=== PATIENT | male | born 1965 | race Caucasian/White ===

== ENCOUNTER 2018-08-11 18:00 | Emergency (ER) | payer OTHER ==
[~2018-08-11] VITALS: Ht 165.1 cm; Wt 70.0 kg
[2018-08-11 18:07] VITALS: Ht 165.1 cm; Wt 70.0 kg
--- NOTE | 2018-08-11 18:09 | ERD ---
ER Documentation Chief Complaint Chief Complaint Patient transferred from [facility] for chest pain and shortness of breath pending admission. Patient is capitated but needs to be boarded in the emergency room. HPI 53-year-old male seen at [facility] today for chest pain and shortness of breath with a history of CHF. He was medically stabilized and was accepted by the hospitalist team at our facility given capitation. Patient currently has no chest pain. EMS reported an elevated blood pressure but the patient is asymptomatic. Patient will be boarding in the emergency room as there are no beds available. Patient has no complaints currently. ROS All systems reviewed and are negative except as per history of present illness. FmHx Family History: diabetes, coronary disease Physical Exam Vitals Vital Signs Date Temp Pulse Resp B/P (MAP) Pulse Ox O2 O2 Flow FiO2 Time Delivery Rate 08/11/18 98.2 82 18 210/107 100 18:07 (141) Physical Exam General: Well developed, well nourished, no acute distress Head: Normocephalic, atraumatic. Eyes: EOM intact ENT: Moist mucous membranes Neck: Full ROM Respiratory: No respiratory distress Cardiovascular: Well perfused distally Abdominal: Nondistended : Deferred MSK: No edema, no unilateral swelling, 5/5 strength Neurologic: Alert and oriented, moving all extremities, normal speech Skin: No rash Psych: Normal mood Results 24 hrs Current Medications Medications Dose Sig/Alex Start Time Status Last (Trade) Ordered Route PRN Stop Time Admin Dose Reason Admin Ondansetron 4 mg ER BRIDGE 08/11/18 HCl (Zofran PRN IV 18:30 Inj) NAUSEA/VOMITI 08/12/18 18:29 NG 650 mg ER BRIDGE 08/11/18 Acetaminophen PRN PO 18:30 (Tylenol .MILD PAIN 08/12/18 18:29 Tab) 1-3 OR TEMP Procedures/MDM The patient has no symptoms currently. Admitting team was notified. The patient was placed in a room and bridge orders have been placed. Awaiting ad mitting orders from the hospitalist team. Accepting care team and consultations: I discussed the current laboratory data, diagnostic imaging and emergency care provided. Admitting team: Dr. Youssef Admitting team indication: Insurance directed Admitting team notified re: elevated BP Departure Diagnosis: Primary Impression: Chest pain Chest pain type: unspecified Qualified Codes: R07.9 - Chest pain, unspe cified Additional Impression: Shortness of breath Condition: Stable DANIEL SEWELL MD August 11, 2018 18:09
[2018-08-11] MEDS ORDERED: NACL 0.9% 3 ML SYG IV SCH (18:30)
[2018-08-11] MEDS ORDERED: ACETAMINOPHEN 325 MG TAB PO PRN ×2 (18:30)
[2018-08-11] MEDS ORDERED: MAGNESIUM HYDROXIDE 30ML CUP PO PRN (18:30)
[2018-08-11] MEDS ORDERED: FAMOTIDINE 20 MG INJ IV SCH (18:30)
[2018-08-11] MEDS ORDERED: ONDANSETRON 4 MG INJ IV PRN ×2 (18:30)
[2018-08-11] MEDS ORDERED: HYDROCODONE/APAP (5/325) TAB PO PRN (18:30)
[2018-08-11] MEDS ORDERED: DOCUSATE SODIUM 100 MG CAP PO PRN (18:30)
[2018-08-11] MEDS ORDERED: LORAZEPAM 2 MG INJ IV PRN (18:30)
[2018-08-11] MEDS ORDERED: morphine 2 MG INJ IV PRN (18:30)
[2018-08-11] MEDS ORDERED: ALBUTEROL/IPRATROPIUM (NEB) 3 ML AMP HHN PRN (18:30)
[2018-08-11] MEDS ORDERED: hydrALAzine 20 MG INJ IV PRN ×3 (18:30→22:30)
[2018-08-11] MEDS ORDERED: NITROGLYCERIN (SL) 0.4 MG TAB SL PRN (18:30)
--- NOTE | 2018-08-11 18:51 | HP ---
Date/Time of Note Date/Time of Note DATE: 08/11/18 TIME: 18:49 Assessment/Plan VTE Prophylaxis SCD applied (from Nsg): No SCD contraindicated: other Pharmacological prophylaxis: LMWH Assessment/Plan Hospital Course Assessment and plan: 53-year-old male history of diabetes, hypertension, possible CHF who presented to outside hospital earlier today with decreased exercise tolerance, signs of CHF exacerbation, hypertensive urgency, and elevated troponins, possible non-ST elevation OH. #Non-ST elevation OH: Again at the outside hospital his first 2 troponins were elevated, but no EKG changes. Patient denies any prior history of any stroke or heart attack -Admit patient, put on Lovenox 1 mg/kg subcu twice daily. Check TSH A1c lip id panel -High-dose aspirin, morphine, oxygen, nitroglycerin, check 2D echocardiogram and continue to trend his troponins -Add beta-tyler and statin #Shortness of breath: Likely secondary to combination of non-STEMI possibly an CHF exacerbation, BNP 2700 -Keep head of the bed elevated greater than 30 degrees, put him on IV Lasix -Monitor daily weights and ins and outs, follow-up echocardiogram results and obtain cardiology consult as mentioned above -Consider low-dose Coreg # DM -follow-up A1c, sliding scale insulin # HTN: See above, monitor, continue current medications HPI/ROS Admit Date/Time Admit Date/Time Hx of Present Illness 53-year-old male past medical history of diabetes, hypertension, possible CHF, who presented earlier today at [facility] emergency room for chest pain and shortness of breath. Patient states his symptoms have been going on for the last 2 to 3 weeks. He is also had decreased exercise tolerance during this time. He is noted some slightly increased swelling in his lower 70s. No upper or lower GI bleeding, no fevers or chills, nausea vomiting, or diarrhea constipation. When he presented to the hospital he was found with hypertensive urgency systolic blood pressures in the 211 range, he was also found with elevated BNP of 2700, and his first 2 troponins they were positive although he had no EKG changes. He was given blood pressure medicines to help control his blood pressure better, IV Lasix, and found with creatinine 1.2. Transferred over here due to insurance purposes. PMH/Family/Social Past Medical History Medications Current Medications Ondansetron HCl (Zofran Inj) 4 mg ER BRIDGE PRN IV NAUSEA/VOMITING; Start 08/11/18 at 18:30; Stop 08/12/18 at 18:29 Acetaminophen (Tylenol Tab) 650 mg ER BRIDGE PRN PO .MILD PAIN 1-3 OR TEMP; Start 08/11/18 at 18:30; Stop 08/12/18 at 18:29 IV Flush (NS 3 ml) 3 ml PER PROTOCOL IV ; Start 08/11/18 at 18:30; Status UNV Ondansetron HCl (Zofran Inj) 4 mg Q6H PRN IV NAUSEA/VOMITING; Start 08/11/18 at 18:30; Status UNV Acetaminophen (Tylenol Tab) 650 mg Q6H PRN PO .PAIN 1-3 OR TEMP; Start 08/11/18 at 18:30; Status UNV Acetaminophen/ Hydrocodone Bitart ([place] (5/325)) 1 tab Q6H PRN PO .MOD PAIN 4- 6; Start 08/11/18 at 18:30; Status UNV Morphine Sulfate (morphine) 2 mg Q4H PRN IV .SEVERE PAIN 7-10; Start 08/11/18 at 18:30; Status UNV Docusate Sodium (Colace) 100 mg Q12H PRN PO .CONSTIPATION; Start 08/11/18 at 18:30; Status UNV Magnesium Hydroxide (Milk Of Mag) 30 ml DAILY PRN PO .CONSTIPATION; Start 08/11/18 at 18:30; Status UNV Famotidine (Pepcid Iv) 20 mg DAILY IV ; Start 08/11/18 at 18:30; Status UNV Lorazepam (Ativan) 0.5 mg Q6H PRN IV ANXIETY; Start 08/11/18 at 18:30; Status UNV Albuterol/ Ipratropium (Duoneb) 3 ml Q4H RESP THERAPY PRN HHN SHORTNESS OF BREATH; Start 08/11/18 at 18:30; Status UNV Clonidine (Catapres) 0.1 mg Q6H PRN PO ELEVATED BLOOD PRESSURE; Start 08/11/18 at 18:30; Status UNV Nitroglycerin (Nitroglycerin (Sl Tab) 0.4 Mg) 1 tab Q5M PRN SL ANGINA; Start 08/11/18 at 18:30; Status UNV Aspirin (Ecotrin) 325 mg DAILY PO ; Start 08/12/18 at 09:00; Status UNV Enoxaparin Sodium (Lovenox) 70 mg Q12 SC ; Start 08/11/18 at 21:00; Status UNV Furosemide (Lasix) 40 mg DAILY IV ; Start 08/12/18 at 09:00; Status UNV Hydralazine HCl (Apresoline) 10 mg Q4H PRN IV ELEVATED BLOOD PRESSURE; Start 08/11/18 at 22:30; Status UNV Past Surgical History Past Surgical Hx: other (Left foot surgery) Social History Alcohol Use: occasionally Smoking Status: Never smoker Drug Use: none Exam/Review of Systems Vital Signs Vitals Vital Signs Date Temp Pulse Resp B/P (MAP) Pulse Ox O2 O2 Flow FiO2 Time Delivery Rate 08/11/18 98.2 73 14 202/103 100 Room Air 18:37 (136) Exam Exam General: Lying in bed, no acute distress Head: Normocephalic, atraumatic. Eyes: EOM intact ENT: Moist mucous membranes Neck: Supple Respiratory: No respiratory distress Cardiovascular: S1, S2 heard Abdominal: Soft, nondistended, normal bowel sounds, no rebound or guarding MSK: 2+ pitting edema bilateral extremity to the mid calves Neurologic: No focal deficits ANDREAS CALHOUN August 11, 2018 18:51
[2018-08-11] MEDS ORDERED: GLUCAGON 1 MG INJ IM PRN (19:30)
[2018-08-11] MEDS ORDERED: DEXTROSE 50% 50 ML SYRINGE IV PRN ×2 (19:30)
[2018-08-11] MEDS ORDERED: GLUCOSE GEL 15 GRAM TUBE BUCCAL PRN (19:30)
[2018-08-11] MEDS ORDERED: ATORVASTATIN 80 MG TAB PO SCH (19:30)
[2018-08-11] MEDS ORDERED: GLUCOSE GEL 15 GRAM TUBE PO PRN ×2 (19:30)
[2018-08-11] MEDS ORDERED: METOPROLOL 25 MG TAB PO SCH (21:00)
[2018-08-11] MEDS ORDERED: INSULIN ASPART [NOVOLOG] 3 ML PEN SC SCH (21:00)
[2018-08-11] MEDS ORDERED: ENOXAPARIN 80 MG/0.8 ML SYG SC SCH (21:00)
[2018-08-11] MEDS: LISINOPRIL 20 MG TAB PO SCH (22:05)
--- NOTE | 2018-08-12 01:30 | CONS ---
DATE OF ADMISSION: 08/11/2018 DATE OF CONSULTATION: 08/11/2018 REASON FOR CONSULTATION: Positive troponin, congestive heart failure. REQUESTING PHYSICIAN: Dr. Calhoun from the hospitalist service. HISTORY OF PRESENT ILLNESS: Mr. Rincon is a 53-year-old male with a history of diabetes mellitus, hypertension, dyslipidemia who presented to an outside hospital with complaints of worsening lower extremity edema times approximately 2 weeks to co, but states 2 months to the outside hospital, dyspnea on exertion and exertional chest pain. At the outside hospital, the patient underwent an EKG that is not on the chart for my review but is reported to have had sinus rhythm, rate of 91, with no significant ST-T wave abnormalities. The patient has significantly elevated blood pressure on arrival 218/118 and at time of transfer was 151/92, pulse 89 on arrival and 74 at the time of transfer. The patient's labs were notable for troponin T which is high at 76 nanograms per liter and then thereafter was 71 and additionally a reportedly elevated creatinine, although I do not see the result of that in the chart for my review. The patient was stabilized and transferred to [facility] after receiving a dose of Lasix, magnesium sulfate, labetalol 100 mg and nitro paste 1 inch. Since arrival at [facility] the patient continued to have a significantly elevated blood pressures over 200. The patient has no labs done here at this time. The patient additionally has no EKG available for my review at this time. The patient denies chest pain to co, is plus/minus on symptoms of orthopnea. PAST MEDICAL HISTORY: As above in the HPI. MEDICATIONS CURRENTLY IN HOSPITAL: 1. Aspirin 325 mg daily. 2. Lasix 40 mg IV daily. 3. Hydralazine p.r.n. 4. Lovenox 30 mg subQ q.12. 5. Zofran. 6. Tylenol. 7. Morphine. 8. Colace. 9. Milk of Magnesia. 10. Ativan. 11. DuoNeb. 12. Clonidine. 13. Nitroglycerin. ALLERGIES: NO KNOWN DRUG ALLERGIES. SOCIAL HISTORY: No current tobacco, ETOH or illicit drug use. FAMILY HISTORY: No history of sudden cardiac or early CAD. REVIEW OF SYSTEMS: As above in the HPI. CONSTITUTIONAL: No fevers or chills. PULMONARY: Shortness of breath. CARDIOVASCULAR: Exertional chest pain. GASTROINTESTINAL: No vomiting. GENITOURINARY: Reported renal failure PHYSICAL EXAMINATION: VITAL SIGNS: Temperature of 98.2, blood pressure 202/103, pulse 70, respiratory rate 14, satting 100% on room air. GENERAL: The patient is alert, awake, complaining of shortness of breath. NECK: JVP approximately 10 cm of water. CHEST: Decreased breath sounds at bases bilaterally. HEART: Regular rate and rhythm. Normal S1 and S2. A I/ systolic murmur, nondisplaced PMI. ABDOMEN: Positive bowel sounds, soft. EXTREMITIES: 2+ edema bilaterally. Somewhat difficult to palpate distal pulses bilateral posterior tibial. LABORATORY DATA: No labs for my review at this time. IMAGING STUDIES: No imaging studies for my review at this time. ELECTROCARDIOGRAM: No electrocardiograms for my review at this time. IMPRESSION: 1. Positive troponin at an outside hospital, assess significance in the setting of mild renal insufficiency and a highly sensitive assay. 2. Lower extremity edema and shortness of breath, assess congestive heart failure. 3. Exertional chest pain, rule out acute coronary syndrome. 4. Mild renal insufficiency by outside hospital labs. 5. Increased BNP, assess congestive heart failure. 6. Diabetes mellitus. 7. Hypertensive urgency/emergency. 8. Dyslipidemia. RECOMMENDATIONS: 1. At this time, I would start patient on p.o. antihypertensives and therefore we will give the patient a beta tyler and consider THIEN inhibitor versus hydralazine given the renal insufficiency. I am also going to additionally write for IV push p.r.n. antihypertensive as necessary. 2. We will trend the patient's cardiac enzymes here. 3. Will check a 2D echo for this patient's ejection fraction, wall motion and rule out any major abnormalities. 4. Check a fasting lipid panel and adjust the patient's baseline statin as necessary. 5. Initiate the patient on Lasix diuresis, following strict I's and O's, grade diuresis and creatinine closely. 6. The patient has been placed on Lovenox and aspirin. We will continue to follow along for true acute coronary syndrome. 7. We will continue to check serial EKGs to assess for significant ongoing changes. Thus, an EKG in the morning, EKG for any complaint of chest pain or change in rhythm. Thank you for allowing me to take part in the care of this patient. I will continue to follow along very closely with you. Further recommendations will be made as the patient progresses through inpatient hospital clinical course. Dictated By: SHAWN DEJESUS/ZEUS Conf#: [id number] DID#: [id number] CC: ANDREAS CALHOUN;*EndCC* MTDD
[2018-08-12] MEDS ORDERED: ACCU-CHEK XX SCH (02:00)
[2018-08-12 05:15] VITALS: RESP 18
[2018-08-12] MEDS ORDERED: ASPIRIN (EC) 325 MG TAB PO SCH (09:00)
[2018-08-12] MEDS: LISINOPRIL 20 MG TAB PO SCH (09:00)
[2018-08-12] MEDS ORDERED: FUROSEMIDE 40 MG INJ IV SCH (09:00)
[2018-08-12] MEDS ORDERED: TRAM100T27 PO (10:22)
[2018-08-12] MEDS ORDERED: ATOR10TA65 PO (10:25)
[2018-08-12] MEDS ORDERED: DILT30TA30 PO (10:25)
[2018-08-12] MEDS ORDERED: FURO20TA3 PO (10:25)
[2018-08-12] MEDS ORDERED: METF100010 PO (10:26)
[2018-08-12] MEDS ORDERED: ATEN-51 PO (10:26)
[2018-08-12] MEDS ORDERED: LISI-471 PO (10:26)
[2018-08-12 10:59] VITALS: BP 176/96; PULSE 81
--- NOTE | 2018-08-12 12:28 | DS ---
Date/Time of Note Date/Time of Note DATE: 08/12/18 TIME: 12:28 Discharge Summary Admission/Discharge Info Admit Date/Time Discharge Date/Time Discharge Diagnosis Patient left AMA Patient Condition: Serious Hx of Present Illness 53-year-old male past medical history of diabetes, hypertension, possible CHF, who presented earlier today at [facility] emergency room for chest pain and shortness of breath. Patient states his symptoms have been going on for the last 2 to 3 weeks. He is also had decreased exercise tolerance during this time. He is noted some slightly increased swelling in his lower 70s. No upper or lower GI bleeding, no fevers or chills, nausea vomiting, or diarrhea constipation. When he presented to the hospital he was found with hypertensive urgency systolic blood pressures in the 211 range, he was also found with elevated BNP of 2700, and his first 2 troponins they were positive although he had no EKG changes. He was given blood pressure medicines to help control his blood pressure better, IV Lasix, and found with creatinine 1.2. Transferred over here due to insurance purposes. Hospital Course Assessment and plan: 53-year-old male history of diabetes, hypertension, possible CHF who presented to outside hospital earlier today with decreased exercise tolerance, signs of CHF exacerbation, hypertensive urgency, and elevated troponins, possible non-ST elevation ID. #Non-ST elevation ID: Again at the outside hospital his first 2 troponins were elevated, but no EKG changes. Patient denies any prior history of any stroke or heart attack -Admit patient, put on Lovenox 1 mg/kg subcu twice daily. Check TSH A1c lipid panel -High-dose aspirin, morphine, oxygen, nitroglycerin, check 2D echocardiogram and continue to trend his troponins -Add beta-tyler and statin #Shortness of breath: Likely secondary to combination of non-STEMI possibly an CHF exacerbation, BNP 2700 -Keep head of the bed elevated greater than 30 degrees, put him on IV Lasix -Monitor daily weights and ins and outs, follow-up echocardiogram results and obtain cardiology consult as mentioned above -Consider low-dose Coreg # DM -follow-up A1c, sliding scale insulin # HTN: See above, monitor, continue current medications Home Meds Reported Medications Atenolol* (Atenolol*) 25 Mg Tablet, 25 MG PO BID, #60 TAB 08/12/18 Lisinopril* (Lisinopril*) 20 Mg Tablet, 20 MG PO DAILY, #30 TAB 08/12/18 Metformin Hcl* (Metformin Hcl*) 1,000 Mg Tablet, 1000 MG PO WITH BREAKFAST DINNE, #60 TAB 08/12/18 Furosemide* (Furosemide*) 20 Mg Tablet, 20 MG PO DAILY, #60 TAB 08/12/18 Atorvastatin Calcium (Atorvastatin Calcium) 10 Mg Tablet, 10 MG PO QHS, #30 TAB 08/12/18 Diltiazem Hcl* (Cardizem*) 30 Mg Tablet, 30 MG PO BID, #60 TAB 08/12/18 Tramadol Hcl* (Tramadol* ER) 100 Mg Tab.er.24h, 100 MG PO DAILY, #30 TAB 08/12/18 Primary Care Provider Not On Staff Doctor Time spent on discharge: < 30 minutes Pending Labs Laboratory Tests Test 08/11/18 18:45 08/11/18 18:46 08/11/18 19:41 08/11/18 21:32 Troponin I < 0.012 ng/ml (0.000-0. 120) Free Thyroxine 1.40 ng/dl (0.64-1. 79) White Blood 8.2 Count 10^3/ul (4.8-1 0.8) Red Blood 4.41 Count 10^6/ul (4.70- 6.10) Hemoglobin 13.7 g/dl (14.0-18. 0) Hematocrit 39.1 % (42.0-52.0) Mean 88.7 Corpuscular fl (82.0-101.0 Volume ) Mean 31.1 Corpuscular pg (29.0-33.0) Hemoglobin Mean 35.0 Corpuscular g/dl (32.0-37. Hemoglobin Conc 0) ent Red Cell 12.6 Distribution % (11.5-14.5) Width Platelet Count 225 10^3/UL (140-4 15) Mean Platelet 9.8 Volume fl (7.4-10.4) Immature 0.400 Granulocytes % % (0.001-0.429 ) Neutrophils % 63.1 % (39.0-77.0) Lymphocytes % 21.6 % (15.0-51.0) Monocytes % 11.0 % (0.0-11.0) Eosinophils % 3.2 % (0.0-7.0) Basophils % 0.7 % (0.0-2.0) Nucleated Red 0.0 Blood Cells % /100WBC (0.0-0 .0) Immature 0.030 Granulocytes # 10^3/ul (0.0-0 .031) Neutrophils # 5.2 10^3/ul (1.6-7 .5) Lymphocytes # 1.8 10^3/ul (0.8-2 .9) Monocytes # 0.9 10^3/ul (0.3-0 .9) Eosinophils # 0.3 10^3/ul (0.0-0 .5) Basophils # 0.1 10^3/ul (0.0-0 .1) Nucleated Red 0.0 Blood Cells # 10^3/ul (0.0-0 .0) Sodium Level 130 mmol/L (135-14 4) Potassium 5.1 Level mmol/L (3.5-5. 1) Chloride Level 98 mmol/L (97-110 ) Carbon Dioxide 29 Level mmol/L (21-31) Anion Gap 3 (5-13) Blood Urea 21 Nitrogen mg/dl (7-20) Creatinine 1.37 mg/dl (0.61-1. 24) Est Glomerular 54 Filtrat mL/min (>60) Rate mL/min Glucose Level 110 mg/dl (70-220) Calcium Level 8.9 mg/dl (8.4-10. 2) Bedside 98 Glucose mg/dL (70-220) Test 08/12/18 01:33 08/12/18 05:23 08/12/18 05:36 08/12/18 07:02 Troponin I 0.024 0.096 ng/ml (0.000-0. ng/ml (0.000-0 120) .120) White Blood 8.2 Count 10^3/ul (4.8-1 0.8) Red Blood 4.39 Count 10^6/ul (4.70- 6.10) Hemoglobin 13.9 g/dl (14.0-18. 0) Hematocrit 39.1 % (42.0-52.0) Mean 89.1 Corpuscular fl (82.0-101.0 Volume ) Mean 31.7 Corpuscular pg (29.0-33.0) Hemoglobin Mean 35.5 Corpuscular g/dl (32.0-37. Hemoglobin Conc 0) ent Red Cell 12.5 Distribution % (11.5-14.5) Width Platelet Count 249 10^3/UL (140-4 15) Mean Platelet 8.9 Volume fl (7.4-10.4) Immature 0.200 Granulocytes % % (0.001-0.429 ) Neutrophils % 68.7 % (39.0-77.0) Lymphocytes % 19.1 % (15.0-51.0) Monocytes % 8.7 % (0.0-11.0) Eosinophils % 2.6 % (0.0-7.0) Basophils % 0.7 % (0.0-2.0) Nucleated Red 0.0 Blood Cells % /100WBC (0.0-0 .0) Immature 0.020 Granulocytes # 10^3/ul (0.0-0 .031) Neutrophils # 5.6 10^3/ul (1.6-7 .5) Lymphocytes # 1.6 10^3/ul (0.8-2 .9) Monocytes # 0.7 10^3/ul (0.3-0 .9) Eosinophils # 0.2 10^3/ul (0.0-0 .5) Basophils # 0.1 10^3/ul (0.0-0 .1) Nucleated Red 0.0 Blood Cells # 10^3/ul (0.0-0 .0) Sodium Level 132 mmol/L (135-14 4) Potassium 4.7 Level mmol/L (3.5-5. 1) Chloride Level 99 mmol/L (97-110 ) Carbon Dioxide 27 Level mmol/L (21-31) Anion Gap 6 (5-13) Blood Urea 23 Nitrogen mg/dl (7-20) Creatinine 1.45 mg/dl (0.61-1. 24) Est Glomerular 51 Filtrat mL/min (>60) Rate mL/min Glucose Level 145 mg/dl (70-220) Hemoglobin A1c 5.2 % (0-5.9) Calcium Level 8.5 mg/dl (8.4-10. 2) Phosphorus 5.1 Level mg/dl (2.5-4.9 ) Magnesium 2.1 Level mg/dl (1.7-2.5 ) Triglycerides 217 Level mg/dl (0-149) Cholesterol 274 Level mg/dl (100-200 ) LDL 173 mg/dl Cholesterol, Calculated HDL 58 Cholesterol mg/dl (28-71) Cholesterol/HDL 4.7 RATIO Ratio Thyroid 4.530 Stimulating MIU/L (0.465-4 Hormone (TSH) .680) Bedside 132 Glucose mg/dL (70-220) ANDREAS CALHOUN August 12, 2018 12:28
[2018-08-12] MEDS ORDERED: hydrALAzine 20 MG INJ ONE (15:09)
== END 2018-08-12 12:28 | disposition left against medical advice (07) ==
LOC: E/R 18:00 → SUATTDRO 18:30 → E/R 08-12 12:28 → CANBEDREQ 08-12 12:44
PROVIDERS: ATTEND Hospitalist
DX: R07.9 Chest pain, unspecified (principal); R06.02 Shortness of breath; I50.9 Heart failure, unspecified
CPT/HCPCS: 80048; 80061; 82962; 83036; 83735; 84100; 84439; 84443; 84484; 85025; 96372; 96374; 96375; J0360; J1650; J1815; Z7502; Z7610

== ENCOUNTER 2018-08-12 12:29 | Inpatient (IN) | payer OTHER ==
[~2018-08-12] VITALS: Ht 170.2 cm; Wt 93.8 kg
[~2018-08-12 12:29] MED LIST: ATEN-51 PO; ATOR10TA65 PO; DILT30TA30 PO; FURO20TA3 PO; LISI-471 PO; METF100010 PO; TRAM100T27 PO
[2018-08-12] MEDS ORDERED: MAGNESIUM HYDROXIDE 30ML CUP PO PRN (13:00)
[2018-08-12] MEDS ORDERED: LORAZEPAM 2 MG INJ IV PRN (13:00)
[2018-08-12] MEDS ORDERED: ACETAMINOPHEN 325 MG TAB PO PRN ×2 (13:00)
[2018-08-12] MEDS ORDERED: ONDANSETRON 4 MG INJ IV PRN ×2 (13:00)
[2018-08-12] MEDS ORDERED: NICARDipine HCL 30 MG CAPSULE PO ONE (13:00)
[2018-08-12] MEDS ORDERED: ALBUTEROL/IPRATROPIUM (NEB) 3 ML AMP HHN PRN (13:00)
[2018-08-12] MEDS ORDERED: NACL 0.9% 3 ML SYG IV SCH (13:00)
[2018-08-12] MEDS ORDERED: DOCUSATE SODIUM 100 MG CAP PO PRN (13:00)
[2018-08-12] MEDS ORDERED: NITROGLYCERIN (SL) 0.4 MG TAB SL PRN (13:00)
--- NOTE | 2018-08-12 13:02 | HP ---
Date/Time of Note Date/Time of Note DATE: 08/12/18 TIME: 12:58 Assessment/Plan VTE Prophylaxis SCD applied (from Nsg): No SCD contraindicated: other Pharmacological prophylaxis: heparin Assessment/Plan Hospital Course Assessment and plan: 53-year-old male history of diabetes, hypertension, possible CHF who presented to outside hospital earlier today with decreased exercise tolerance, signs of CHF exacerbation, hypertensive urgency, and elevated troponins, possible non-ST elevation OK. #Questionable non-ST elevation OK: Again at the outside hospital his first 2 troponins were elevated, but no EKG changes. Patient denies any prior history of any stroke or heart attack -For now continue current cardiac medications and follow-up TSH A1c lipid panel -Also continue high-dose aspirin, morphine, oxygen, nitroglycerin, follow-up 2D echocardiogram and continue to trend his troponins -Continue statin #Shortness of breath: Likely secondary to combination of non-STEMI possibly an CHF exacerbation, BNP 2700 yesterday on initial admission -Keep head of the bed elevated greater than 30 degrees, restart IV Lasix -Monitor daily weights and ins and outs, follow-up echocardiogram results and obtain cardiology consult as mentioned above -Per cardiology recommendations, continue p.o. Coreg, p.o. hydralazine, and lisinopril p.o. # DM -follow-up A1c, continue sliding scale insulin # HTN: Again signs of hypertensive urgency. - See above, monitor, continue current medications HPI/ROS Admit Date/Time Admit Date/Time Hx of Present Illness 53-year-old male past medical history of diabetes, hypertension, possible CHF, who actually was admitted yesterday after being transferred from [facility] emergency room for chest pain and shortness of breath. Patient left AGAINST MEDICAL ADVICE earlier this morning for about 30 minutes then came back to the emergency room today, for unclear reasons (he does not appear to make the wisest decisions regarding his medical care). In any event, yesterday the patient stated his symptoms have been going on for the last 2 to 3 weeks. He is also had decreased exercise tolerance during this time. He is noted some increased lower extremity swelling bilaterally. No upper or lower GI bleeding, no fevers or chills, nausea vomiting, or diarrhea constipation. Patient again today is found with hypertensive urgency systolic blood pressures in the 200 range, yesterday he was also found with elevated BNP of 2700, and apparently at the outside hospital his first 2 troponins they were positive although he had no EKG changes. Cardiology team saw him yesterday and recommended treatment of blood pressure and the CHF. Patient has been on Lasix before he left AGAINST MEDICAL ADVICE this morning. Presently patient is asking to be readmitted and has no upper or lower GI bleeding presently, nausea vomiting fever chills, diarrhea constipation. PMH/Family/Social Past Medical History Medications Current Medications Nicardipine HCl (Cardene) 30 mg ONCE ONCE PO ; Start 08/12/18 at 13:00; Stop 08/12/18 at 13:01 Ondansetron HCl (Zofran Inj) 4 mg ER BRIDGE PRN IV NAUSEA/VOMITING; Start 08/12/18 at 13:00; Stop 08/13/18 at 12:59 Acetaminophen (Tylenol Tab) 650 mg ER BRIDGE PRN PO .MILD PAIN 1-3 OR TEMP; Start 08/12/18 at 13:00; Stop 08/13/18 at 12:59 IV Flush (NS 3 ml) 3 ml PER PROTOCOL IV ; Start 08/12/18 at 13:00; Status UNV Ondansetron HCl (Zofran Inj) 4 mg Q6H PRN IV NAUSEA/VOMITING; Start 08/12/18 at 13:00; Status UNV Acetaminophen (Tylenol Tab) 650 mg Q6H PRN PO .PAIN 1-3 OR TEMP; Start 08/12/18 at 13:00; Status UNV Acetaminophen/ Hydrocodone Bitart ([place] (5/325)) 1 tab Q6H PRN PO .MOD PAIN 4- 6; Start 08/12/18 at 13:00; Status UNV Morphine Sulfate (morphine) 2 mg Q4H PRN IV .SEVERE PAIN 7-10; Start 08/12/18 at 13:00; Status UNV Docusate Sodium (Colace) 100 mg Q12H PRN PO .CONSTIPATION; Start 08/12/18 at 13:00; Status UNV Magnesium Hydroxide (Milk Of Mag) 30 ml DAILY PRN PO .CONSTIPATION; Start 08/12/18 at 13:00; Status UNV Heparin Sodium (Porcine) (Heparin (5000 Units/1ml)) 5,000 unit Q12 SC ; Start 08/12/18 at 21:00; Status UNV Lorazepam (Ativan) 0.5 mg Q6H PRN IV ANXIETY; Start 08/12/18 at 13:00; Status UNV Albuterol/ Ipratropium (Duoneb) 3 ml Q4H RESP THERAPY PRN HHN SHORTNESS OF BREATH; Start 08/12/18 at 13:00; Status UNV Hydralazine HCl (Apresoline) 10 mg Q4H PRN IV ELEVATED BLOOD PRESSURE; Start 08/12/18 at 13:00; Status UNV Nitroglycerin (Nitroglycerin (Sl Tab) 0.4 Mg) 1 tab Q5M PRN SL ANGINA; Start 08/12/18 at 13:00; Status UNV Aspirin (Ecotrin) 325 mg DAILY PO ; Start 08/13/18 at 09:00; Status UNV Atorvastatin Calcium (Lipitor) 10 mg QHS PO ; Start 08/12/18 at 21:00; Status UNV Lisinopril (Zestril) 20 mg DAILY PO ; Start 08/13/18 at 09:00; Status UNV Hydralazine HCl (Apresoline) 25 mg Q8 PO ; Start 08/12/18 at 14:00; Status UNV Metoprolol Tartrate (Lopressor) 25 mg BID PO ; Start 08/12/18 at 21:00; Status UNV Coded Allergies: No Known Allergy (Unverified , 08/12/18) Past Surgical History Past Surgical Hx: other (Left foot sx) Exam/Review of Systems Vital Signs Vitals Vital Signs Date Temp Pulse Resp B/P (MAP) Pulse Ox O2 O2 Flow FiO2 Time Delivery Rate 08/12/18 98.1 96 18 208/112 99 12:32 (144) Exam Exam General: Lying in bed, no acute distress Head: Normocephalic, atraumatic. Eyes: EOM intact ENT: Moist mucous membranes Neck: Supple Respiratory: No respiratory distress Cardiovascular: S1, S2 heard Abdominal: Soft, nondistended, normal bowel sounds, no rebound or guarding MSK: 2+ pitting edema bilateral extremity to the mid calves Neurologic: No focal deficits ANDREAS CALHOUN August 12, 2018 13:02
--- NOTE | 2018-08-12 13:05 | ERD ---
ER Documentation Chief Complaint Chief Complaint was admitted for cp , sob , eloped from er x 1 hr ago c/o chest pressure HPI This is a 53-year-old male who had been admitted to the hospital as he was transferred due to capitation from insurance from another facility. The patient had been remaining in the emergency department as there were no beds available. The patient had eloped without completion of treatment. He initially was admitted for chest pain he has known history of diabetes hypertension and was being evaluated for possible new onset congestive heart failure. The patient had an elevated troponin at another facility and was being treated for a non-ST segment myocardial infarction. The patient still states he is experiencing intermittent chest pain which is why he returns to the hospital. He states is a pressure-like sensation. He eloped roughly 30 minutes ago and states he wants to return due to the persistence of his symptoms. He also complains of shortness of breath with exertion for the past several days. He denies a headache. ROS All systems reviewed and are negative except as per history of present illness. Medications Home Meds Reported Medications Atenolol* (Atenolol*) 25 Mg Tablet, 25 MG PO BID, #60 TAB 08/12/18 Lisinopril* (Lisinopril*) 20 Mg Tablet, 20 MG PO DAILY, #30 TAB 08/12/18 Metformin Hcl* (Metformin Hcl*) 1,000 Mg Tablet, 1000 MG PO WITH BREAKFAST DINNE, #60 TAB 08/12/18 Furosemide* (Furosemide*) 20 Mg Tablet, 20 MG PO DAILY, #60 TAB 08/12/18 Atorvastatin Calcium (Atorvastatin Calcium) 10 Mg Tablet, 10 MG PO QHS, #30 TAB 08/12/18 Diltiazem Hcl* (Cardizem*) 30 Mg Tablet, 30 MG PO BID, #60 TAB 08/12/18 Tramadol Hcl* (Tramadol* ER) 100 Mg Tab.er.24h, 100 MG PO DAILY, #30 TAB 08/12/18 Allergies Allergies: Coded Allergies: No Known Allergy (Unverified , 08/12/18) PMhx/Soc History of Surgery: Yes (L foot, nasal surgery) Anesthesia Reaction: No Hx Neurological Disorder: No Hx Respiratory Disorders: No Hx Cardiac Disorders: Yes (HTN) Hx Psychiatric Problems: No Hx Miscellaneous Medical Probl: Yes (High cholesterol) Hx Alcohol Use: Yes Hx Substance Use: No Hx Tobacco Use: No Physical Exam Vitals Vital Signs Date Temp Pulse Resp B/P (MAP) Pulse Ox O2 O2 Flow FiO2 Time Delivery Rate 08/12/18 98.1 96 18 208/112 99 12:32 (144) Physical Exam Constitutional:Well-developed. Well-nourished. HEENT:Normocephalic. Atraumatic.Pupils were equal round reactive to light. Moist mucous membranes.funduscopy exam shows sharp optic disks and venous pulsations a re present Neck: No nuchal rigidity. No lymphadenopathy. No posterior cervical spine tenderness or step-offs. Respiratory: Not using accessory muscles of respiration.Lungs were clear to auscultation bilaterally. No rhonchi. No rales. No wheezing. Cardiovascular: Regular rate regular rhythm.No murmurs. No rubs were appreciated.S1, S2 normal. Distal pulses are palpable 2+ bilaterally. Muscle skeletal: Full range of motion of both the upper and lower extremities bilaterally.Normal muscle tone.No assymetrical calf tenderness or swelling. Skin: No petechia, no purpura. No lesions on the palms or the soles of the feet. No maculopapular rash. NEURO: Patient was alert, awake, orientated x3.No facial droop. Gait observed and normal with no ataxia.Speech had regular rate and rhythm. No focal neuro logical deficits. Result Diagram: 08/12/18 1300 08/12/18 1300 Results 24 hrs Procedures/MDM This patient presented to the emergency department after eloping. The patient will be readmitted to the hospitalist and go to the telemetry service. I did repeat ancillary laboratory work as well as the patient's EKG. 12 Lead EKG tracing ordered and reviewed by myself showed: Normal sinus rhythm of 94 bpm and no arrhythmia. DC interval normal. QRS duration normal. No ST segment elevation No ST segment depression. No changes consistent with acute ischemia. The patient's blood pressure was elevated. He did receive Cardene for improvement of his blood pressure. Departure Diagnosis: Primary Impression: Chest pain Chest pain type: unspecified Qualified Codes: R07.9 - Chest pain, unspecified Additional Impression: Hypertensive urgency Condition: Serious GWEN MARTE MD August 12, 2018 13:05
[2018-08-12] MEDS: hydrALAzine 20 MG INJ IV PRN (15:11)
[2018-08-12 16:00] VITALS: Ht 170.2 cm; Wt 93.8 kg
--- NOTE | 2018-08-12 16:42 | CONS ---
Assessment/Plan Assessment/Plan Hospital Course (Demo Recall) IMPRESSION: 1. Positive troponin at an outside hospital, assess significance in the setting of mild renal insufficiency and a highly sensitive assay.- negative here at [facility] x 3 2. Lower extremity edema and shortness of breath, assess congestive heart failure. 3. Exertional chest pain, rule out acute coronary syndrome. 4. Mild renal insufficiency by outside hospital labs. 5. Increased BNP, assess congestive heart failure. 6. Diabetes mellitus. 7. Hypertensive urgency/emergency. 8. Dyslipidemia. REcc: -Admit Tele -patient apparently left [facility] overnight and now returns for admit -Contineu to trend cardiac enzymes -Give baseline BB/hydralazine/ACEI and follow BP clsoely which is currently improved sp diose of procardia -Continue asa -Continue daily lasix and follow volume status closely -Consider AM stress testing to eval signficance of positive troponin at OSH Consultation Date/Type/Reason Admit Date/Time August 12, 2018 at 12:47 Initial Consult Date 08/11/18 Type of Consult Cardiology Reason for Consultation positive tropnin/cp Requesting Provider: ANDREAS CALHOUN Date/Time of Note DATE: 08/12/18 TIME: 16:37 Exam/Review of Systems Vital Signs Vitals Vital Signs Date Temp Pulse Resp B/P (MAP) Pulse Ox O2 O2 Flow FiO2 Time Delivery Rate 08/12/18 138/67 15:28 (90) 08/12/18 99.0 88 20 98 Room Air 14:47 Exam Exam Review of Systems: CONSTITUTIONAL: No fevers, chills. PULMONARY: No sob CARDIOVASCULAR: No chest pain/palpitations GASTROINTESTINAL: No nausea/vomiting. GENITOURINARY: No hematuria/dysuria. MUSCULOSKELETAL: No myagias/arthalgias. PSYCHIATRIC: The patient denies depression. NEUROLOGIC: No weakness Constitutional: alert Psych: no complaints Head: normocephalic ENMT: mucosa pink and moist Neck: supple, jvd (9 cm water) Respiratory: diminished breath sounds (at bases/B) Cardiovascular: regular rate and rhythm Gastrointestinal: soft, non-tender Musculoskeletal: muscle tone (normal) Extremities: pitting pedal edema (bilateral) Labs Result Diagram: 08/12/18 1300 08/12/18 1300 Results 24hrs Laboratory Tests Test 08/12/18 12:55 08/12/18 12:59 08/12/18 13:00 Free Thyroxine 1.25 Prothrombin Time 11.5 L Prothrombin Time Ratio 0.9 INR International Normalized Ratio 0.83 Activated Partial Thromboplast Time 31.2 White Blood Count 7.4 Red Blood Count 4.82 Hemoglobin 15.0 Hematocrit 42.9 Mean Corpuscular Volume 89.0 Mean Corpuscular Hemoglobin 31.1 Mean Corpuscular Hemoglobin Concent 35.0 Red Cell Distribution Width 12.6 Platelet Count 230 Mean Platelet Volume 8.6 Immature Granulocytes % 0.300 Neutrophils % 68.1 Lymphocytes % 18.6 Monocytes % 10.3 Eosinophils % 2.0 Basophils % 0.7 Nucleated Red Blood Cells % 0.0 Immature Granulocytes # 0.020 Neutrophils # 5.0 Lymphocytes # 1.4 Monocytes # 0.8 Eosinophils # 0.2 Basophils # 0.1 Nucleated Red Blood Cells # 0.0 Sodium Level 132 L Potassium Level 4.6 Chloride Level 102 Carbon Dioxide Level 24 Anion Gap 6 Blood Urea Nitrogen 23 H Creatinine 1.42 H Est Glomerular Filtrat Rate mL/min 52 L Glucose Level 170 Calcium Level 8.9 Total Bilirubin 0.5 Direct Bilirubin 0.00 Indirect Bilirubin 0.5 Aspartate Amino Transf (AST/SGOT) 56 H Alanine Aminotransferase (ALT/SGPT) 25 Alkaline Phosphatase 94 Creatine Kinase 662 H Creatine Kinase Index 1.8 Creatinine Kinase MB (Mass) 11.80 H Troponin I 0.081 B-Type Natriuretic Peptide 2460 H Total Protein 6.7 Albumin 3.1 L Globulin 3.60 H Albumin/Globulin Ratio 0.86 Medications Medications Current Medications Ondansetron HCl (Zofran Inj) 4 mg ER BRIDGE PRN IV NAUSEA/VOMITING; Start 08/12/18 at 13:00; Stop 08/13/18 at 12:59 Acetaminophen (Tylenol Tab) 650 mg ER BRIDGE PRN PO .MILD PAIN 1-3 OR TEMP; Start 08/12/18 at 13:00; Stop 08/13/18 at 12:59 IV Flush (NS 3 ml) 3 ml PER PROTOCOL IV ; Start 08/12/18 at 13:00 Ondansetron HCl (Zofran Inj) 4 mg Q6H PRN IV NAUSEA/VOMITING; Start 08/12/18 at 13:00 Acetaminophen (Tylenol Tab) 650 mg Q6H PRN PO .PAIN 1-3 OR TEMP; Start 08/12/18 at 13:00 Acetaminophen/ Hydrocodone Bitart ([place] (5/325)) 1 tab Q6H PRN PO .MOD PAIN 4- 6; Start 08/12/18 at 13:00 Morphine Sulfate (morphine) 2 mg Q4H PRN IV .SEVERE PAIN 7-10; Start 08/12/18 at 13:00 Docusate Sodium (Colace) 100 mg Q12H PRN PO .CONSTIPATION; Start 08/12/18 at 13:00 Magnesium Hydroxide (Milk Of Mag) 30 ml DAILY PRN PO .CONSTIPATION; Start 08/12/18 at 13:00 Heparin Sodium (Porcine) (Heparin (5000 Units/1ml)) 5,000 unit Q12 SC ; Start 08/12/18 at 21:00 Lorazepam (Ativan) 0.5 mg Q6H PRN IV ANXIETY; Start 08/12/18 at 13:00 Albuterol/ Ipratropium (Duoneb) 3 ml Q4H RESP THERAPY PRN HHN SHORTNESS OF BREATH; Start 08/12/18 at 13:00 Hydralazine HCl (Apresoline) 10 mg Q4H PRN IV ELEVATED BLOOD PRESSURE Last administered on 08/12/18at 15:11; Admin Dose 10 MG; Start 08/12/18 at 13:00 Nitroglycerin (Nitroglycerin (Sl Tab) 0.4 Mg) 1 tab Q5M PRN SL ANGINA; Start 08/12/18 at 13:00 Aspirin (Ecotrin) 325 mg DAILY PO ; Start 08/13/18 at 09:00 Atorvastatin Calcium (Lipitor) 10 mg QHS PO ; Start 08/12/18 at 21:00 Lisinopril (Zestril) 20 mg DAILY PO ; Start 08/13/18 at 09:00 Hydralazine HCl (Apresoline) 25 mg Q8 PO ; Start 08/12/18 at 14:00 Metoprolol Tartrate (Lopressor) 25 mg BID PO ; Start 08/12/18 at 21:00 Furosemide (Lasix) 40 mg DAILY IV ; Start 08/13/18 at 09:00 SHAWN MEIER August 12, 2018 16:42
[2018-08-12 18:25] VITALS: PULSE 102
[2018-08-12 20:00] VITALS: BP 194/98; PULSE 107; PULSE 109; RESP 18
[2018-08-12] MEDS: HEPARIN 5,000 UNIT/1 ML VIAL SC SCH (20:51)
[2018-08-12] MEDS: ATORVASTATIN 10 MG TAB PO SCH (20:52)
[2018-08-12] MEDS: METOPROLOL 25 MG TAB PO SCH (20:52)
[2018-08-13] VITALS (10 sets, daily range): BP systolic 135–214; BP diastolic 81–116; PULSE 78–112; RESP 18–20
[2018-08-13] MEDS: hydrALAzine 20 MG INJ IV PRN ×3 (04:20→20:52)
[2018-08-13] MEDS ORDERED: LISINOPRIL 20 MG TAB PO SCH (09:00)
[2018-08-13] MEDS: METOPROLOL 25 MG TAB PO SCH ×2 (09:03→20:37)
[2018-08-13] MEDS: ASPIRIN (EC) 325 MG TAB PO SCH (09:03)
[2018-08-13] MEDS: FUROSEMIDE 40 MG INJ IV SCH (09:04)
[2018-08-13] MEDS: HEPARIN 5,000 UNIT/1 ML VIAL SC SCH ×2 (09:20→20:45)
[2018-08-13] MEDS ORDERED: LABETALOL HCL 20MG INJ IV PRN (10:30)
--- NOTE | 2018-08-13 10:32 | PN ---
Date/Time of Note Date/Time of Note DATE: 08/13/18 TIME: 10:30 Assessment/Plan VTE Prophylaxis Risk score (from Ns)>0 risk: 1 SCD applied (from Ns): No SCD contraindicated: other Pharmacological prophylaxis: heparin Lines/Catheters IV [facility]from [facility] Saline [facility] Assessment/Plan Hospital Course S: O: VS - see below PE: General: Lying in bed, no acute distress Head: Normocephalic, atraumatic. Eyes: EOM intact ENT: Moist mucous membranes Neck: Supple Respiratory: No respiratory distress Cardiovascular: S1, S2 heard Abdominal: Soft, nondistended, normal bowel sounds, no rebound or guarding MSK: 1-2+ pitting edema bilateral extremity to the mid calves Neurologic: No focal deficits Assessment and plan: 53-year-old male history of diabetes, hypertension, possible CHF who presented to outside hospital earlier today with decreased exercise tolerance, signs of CHF exacerbation, hypertensive urgency, and elevated troponins, possible non-ST elevation TN. #Questionable non-ST elevation TN: Again at the outside hospital before transfer his first 2 troponins were elevated, but no EKG changes. Patient denies any prior history of any stroke or heart attack -For now continue current cardiac medications-awaiting cardiac stress test for later today, follow-up results of this -Also continue high-dose aspirin, morphine, oxygen, nitroglycerin, follow-up 2D echocardiogram and continue to trend his troponins -Continue statin, f/u cardiology recommendations #Shortness of breath: Likely secondary to combination of non-STEMI possibly an CHF exacerbation, BNP 2700 on admission -Keep head of the bed elevated greater than 30 degrees, IV Lasix -Monitor daily weights and ins and outs, follow-up echocardiogram results and obtain cardiology consult as mentioned above - continue p.o. Coreg, p.o. hydralazine, and lisinopril p.o. # DM -A1c was 5.2, continue sliding scale insulin # HTN: Again signs of hypertensive urgency, somewhat improved since admission. - See above, monitor, continue current medications Result Diagram: 08/13/18 0546 08/13/18 0546 Results 24hrs Laboratory Tests Test 08/12/18 12:55 08/12/18 12:59 08/12/18 13:00 08/12/18 18:03 Free Thyroxine 1.25 Prothrombin Time 11.5 L Prothrombin Time 0.9 Ratio INR International 0.83 Normalized Ratio Activated 31.2 Partial Thromboplast Time White Blood Count 7.4 Red Blood Count 4.82 Hemoglobin 15.0 Hematocrit 42.9 Mean Corpuscular 89.0 Volume Mean Corpuscular 31.1 Hemoglobin Mean Corpuscular 35.0 Hemoglobin Concent Red Cell 12.6 Distribution Width Platelet Count 230 Mean Platelet Volume 8.6 Immature 0.300 Granulocytes % Neutrophils % 68.1 Lymphocytes % 18.6 Monocytes % 10.3 Eosinophils % 2.0 Basophils % 0.7 Nucleated Red Blood 0.0 Cells % Immature 0.020 Granulocytes # Neutrophils # 5.0 Lymphocytes # 1.4 Monocytes # 0.8 Eosinophils # 0.2 Basophils # 0.1 Nucleated Red Blood 0.0 Cells # Sodium Level 132 L Potassium Level 4.6 Chloride Level 102 Carbon Dioxide Level 24 Anion Gap 6 Blood Urea Nitrogen 23 H Creatinine 1.42 H Est Glomerular 52 L Filtrat Rate mL/min Glucose Level 170 Calcium Level 8.9 Total Bilirubin 0.5 Direct Bilirubin 0.00 Indirect Bilirubin 0.5 Aspartate Amino 56 H Transf (AST/SGOT) Alanine 25 Aminotransferase (AL T/SGPT) Alkaline Phosphatase 94 Creatine Kinase 662 H 667 H Creatine Kinase 1.8 1.8 Index Creatinine Kinase MB 11.80 H 11.70 H (Mass) Troponin I 0.081 0.059 B-Type Natriuretic 2460 H Peptide Total Protein 6.7 Albumin 3.1 L Globulin 3.60 H Albumin/Globulin 0.86 Ratio Test 08/13/18 05:46 White Blood Count 7.9 Red Blood Count 4.33 L Hemoglobin 13.6 L Hematocrit 38.6 L Mean Corpuscular 89.1 Volume Mean Corpuscular 31.4 Hemoglobin Mean Corpuscular 35.2 Hemoglobin Concent Red Cell 12.4 Distribution Width Platelet Count 240 Mean Platelet Volume 8.8 Immature 0.300 Granulocytes % Neutrophils % 67.7 Lymphocytes % 17.6 Monocytes % 10.2 Eosinophils % 3.4 Basophils % 0.8 Nucleated Red Blood 0.0 Cells % Immature 0.020 Granulocytes # Neutrophils # 5.4 Lymphocytes # 1.4 Monocytes # 0.8 Eosinophils # 0.3 Basophils # 0.1 Nucleated Red Blood 0.0 Cells # Sodium Level 134 L Potassium Level 4.5 Chloride Level 104 Carbon Dioxide Level 26 Anion Gap 4 L Blood Urea Nitrogen 24 H Creatinine 1.52 H Est Glomerular 48 L Filtrat Rate mL/min Glucose Level 136 Hemoglobin A1c 5.2 Calcium Level 8.9 Phosphorus Level 4.5 Magnesium Level 1.9 Triglycerides Level 132 Cholesterol Level 246 H LDL Cholesterol, 156 Calculated HDL Cholesterol 64 Cholesterol/HDL 3.8 Ratio Thyroid Stimulating 4.310 Hormone (TSH) Exam/Review of Systems Exam Vitals Vital Signs Date Temp Pulse Resp B/P (MAP) Pulse Ox O2 O2 Flow FiO2 Time Delivery Rate 08/13/18 107 08:00 08/13/18 98.2 20 135/81 98 Room Air 07:20 (99) Intake and Output 08/12/18 08/12/18 08/13/18 1515:00 23:00 07:00 IntakeIntake Total 50 ml BalanceBalance 50 ml Results Results 24hrs Laboratory Tests Test 08/12/18 12:55 08/12/18 12:59 08/12/18 13:00 08/12/18 18:03 Free Thyroxine 1.25 Prothrombin Time 11.5 L Prothrombin Time 0.9 Ratio INR International 0.83 Normalized Ratio Activated 31.2 Partial Thromboplast Time White Blood Count 7.4 Red Blood Count 4.82 Hemoglobin 15.0 Hematocrit 42.9 Mean Corpuscular 89.0 Volume Mean Corpuscular 31.1 Hemoglobin Mean Corpuscular 35.0 Hemoglobin Concent Red Cell 12.6 Distribution Width Platelet Count 230 Mean Platelet Volume 8.6 Immature 0.300 Granulocytes % Neutrophils % 68.1 Lymphocytes % 18.6 Monocytes % 10.3 Eosinophils % 2.0 Basophils % 0.7 Nucleated Red Blood 0.0 Cells % Immature 0.020 Granulocytes # Neutrophils # 5.0 Lymphocytes # 1.4 Monocytes # 0.8 Eosinophils # 0.2 Basophils # 0.1 Nucleated Red Blood 0.0 Cells # Sodium Level 132 L Potassium Level 4.6 Chloride Level 102 Carbon Dioxide Level 24 Anion Gap 6 Blood Urea Nitrogen 23 H Creatinine 1.42 H Est Glomerular 52 L Filtrat Rate mL/min Glucose Level 170 Calcium Level 8.9 Total Bilirubin 0.5 Direct Bilirubin 0.00 Indirect Bilirubin 0.5 Aspartate Amino 56 H Transf (AST/SGOT) Alanine 25 Aminotransferase (AL T/SGPT) Alkaline Phosphatase 94 Creatine Kinase 662 H 667 H Creatine Kinase 1.8 1.8 Index Creatinine Kinase MB 11.80 H 11.70 H (Mass) Troponin I 0.081 0.059 B-Type Natriuretic 2460 H Peptide Total Protein 6.7 Albumin 3.1 L Globulin 3.60 H Albumin/Globulin 0.86 Ratio Test 08/13/18 05:46 White Blood Count 7.9 Red Blood Count 4.33 L Hemoglobin 13.6 L Hematocrit 38.6 L Mean Corpuscular 89.1 Volume Mean Corpuscular 31.4 Hemoglobin Mean Corpuscular 35.2 Hemoglobin Concent Red Cell 12.4 Distribution Width Platelet Count 240 Mean Platelet Volume 8.8 Immature 0.300 Granulocytes % Neutrophils % 67.7 Lymphocytes % 17.6 Monocytes % 10.2 Eosinophils % 3.4 Basophils % 0.8 Nucleated Red Blood 0.0 Cells % Immature 0.020 Granulocytes # Neutrophils # 5.4 Lymphocytes # 1.4 Monocytes # 0.8 Eosinophils # 0.3 Basophils # 0.1 Nucleated Red Blood 0.0 Cells # Sodium Level 134 L Potassium Level 4.5 Chloride Level 104 Carbon Dioxide Level 26 Anion Gap 4 L Blood Urea Nitrogen 24 H Creatinine 1.52 H Est Glomerular 48 L Filtrat Rate mL/min Glucose Level 136 Hemoglobin A1c 5.2 Calcium Level 8.9 Phosphorus Level 4.5 Magnesium Level 1.9 Triglycerides Level 132 Cholesterol Level 246 H LDL Cholesterol, 156 Calculated HDL Cholesterol 64 Cholesterol/HDL 3.8 Ratio Thyroid Stimulating 4.310 Hormone (TSH) Medications Medication Current Medications IV Flush (NS 3 ml) 3 ml PER PROTOCOL IV ; Start 08/12/18 at 13:00 Ondansetron HCl (Zofran Inj) 4 mg Q6H PRN IV NAUSEA/VOMITING; Start 08/12/18 at 13:00 Acetaminophen (Tylenol Tab) 650 mg Q6H PRN PO .PAIN 1-3 OR TEMP; Start 08/12/18 at 13:00 Acetaminophen/ Hydrocodone Bitart ([place] (5/325)) 1 tab Q6H PRN PO .MOD PAIN 4- 6; Start 08/12/18 at 13:00 Morphine Sulfate (morphine) 2 mg Q4H PRN IV .SEVERE PAIN 7-10; Start 08/12/18 at 13:00 Docusate Sodium (Colace) 100 mg Q12H PRN PO .CONSTIPATION; Start 08/12/18 at 13:00 Magnesium Hydroxide (Milk Of Mag) 30 ml DAILY PRN PO .CONSTIPATION; Start 07/19 09/05 at 13:00 Heparin Sodium (Porcine) (Heparin (5000 Units/1ml)) 5,000 unit Q12 SC Last administered on 08/13/18 09:20; Admin Dose 5,000 UNIT; Start 08/12/18 at 21:00 Lorazepam (Ativan) 0.5 mg Q6H PRN IV ANXIETY Last administered on 08/13/18 04:21; Admin Dose 0.5 MG; Start 08/12/18 at 13:00 Albuterol/ Ipratropium (Duoneb) 3 ml Q4H RESP THERAPY PRN HHN SHORTNESS OF BREATH; Start 08/12/18 at 13:00 Hydralazine HCl (Apresoline) 10 mg Q4H PRN IV ELEVATED BLOOD PRESSURE Last administered on 08/13/18 04:20; Admin Dose 10 MG; Start 08/12/18 at 13:00 Nitroglycerin (Nitroglycerin (Sl Tab) 0.4 Mg) 1 tab Q5M PRN SL ANGINA; Start 08/12/18 at 13:00 Aspirin (Ecotrin) 325 mg DAILY PO Last administered on 08/13/18 09:03; Admin Dose 325 MG; Start 08/13/18 at 09:00 Atorvastatin Calcium (Lipitor) 10 mg QHS PO Last administered on 08/12/18 20:52; Admin Dose 10 MG; Start 08/12/18 at 21:00 Lisinopril (Zestril) 20 mg DAILY PO Last administered on 08/13/18 09:04; Admin Dose 20 MG; Start 08/13/18 at 09:00 Hydralazine HCl (Apresoline) 25 mg Q8 PO Last administered on 08/13/18 06:26; Admin Dose 25 MG; Start 08/12/18 at 14:00 Metoprolol Tartrate (Lopressor) 25 mg BID PO Last administered on 08/13/18 09:03; Admin Dose 25 MG; Start 08/12/18 at 21:00 Furosemide (Lasix) 40 mg DAILY IV Last administered on 08/13/18 09:04; Admin Dose 40 MG; Start 08/13/18 at 09:00 ANDREAS CALHOUN August 13, 2018 10:32
[2018-08-13] MEDS ORDERED: REGADENOSON 0.4 MG/5 ML SYG ONE (11:53)
--- NOTE | 2018-08-13 12:27 | CONS ---
Assessment/Plan Assessment/Plan Hospital Course (Demo Recall) IMPRESSION: 1. Positive troponin at an outside hospital, assess significance in the setting of mild renal insufficiency and a highly sensitive assay.- negative here at [facility] x 3 2. Lower extremity edema and shortness of breath, assess congestive heart failure. 3. Exertional chest pain, rule out acute coronary syndrome. 4. Mild renal insufficiency by outside hospital labs. 5. Increased BNP, assess congestive heart failure. 6. Diabetes mellitus. 7. Hypertensive urgency/emergency. 8. Dyslipidemia. REcc: -Tele -Contineu to trend cardiac enzymes -Continue BB/hydralazine/ACEI with uptitration to improvr BP control -Continue asa -Continue daily lasix and follow volume status closely -Lexiscan stress testing to eval signficance of positive troponin at OSH today -Will f/u echo Consultation Date/Type/Reason Admit Date/Time August 12, 2018 at 12:47 Initial Consult Date 08/11/18 Type of Consult Cardiology Reason for Consultation positive troponin Requesting Provider: ANDREAS CALHOUN Date/Time of Note DATE: 08/13/18 TIME: 12:25 Exam/Review of Systems Vital Signs Vitals Vital Signs Date Temp Pulse Resp B/P (MAP) Pulse Ox O2 O2 Flow FiO2 Time Delivery Rate 08/13/18 97.9 78 20 162/93 96 Room Air 11:01 (116) Intake and Output 08/12/18 08/12/18 08/13/18 1515:00 23:00 07:00 IntakeIntake Total 50 ml BalanceBalance 50 ml Exam Exam Review of Systems: CONSTITUTIONAL: No fevers, chills. PULMONARY: No sob CARDIOVASCULAR: No chest pain/palpitations GASTROINTESTINAL: No nausea/vomiting. GENITOURINARY: No hematuria/dysuria. MUSCULOSKELETAL: No myagias/arthalgias. PSYCHIATRIC: The patient denies depression. NEUROLOGIC: No weakness Constitutional: alert Psych: no complaints Head: normocephalic ENMT: mucosa pink and moist Neck: supple, jvd (9 cm water) Respiratory: diminished breath sounds Cardiovascular: regular rate and rhythm Gastrointestinal: soft, non-tender Musculoskeletal: muscle tone (normal) Extremities: edema (trace/B) Neurological: other (No focal deficits) Labs Result Diagram: 08/13/1846 08/13/18545 Results 24hrs Laboratory Tests Test 08/12/18 12:55 08/12/18 12:59 08/12/18 13:00 08/12/18 18:03 Free Thyroxine 1.25 Prothrombin Time 11.5 L Prothrombin Time 0.9 Ratio INR International 0.83 Normalized Ratio Activated 31.2 Partial Thromboplast Time White Blood Count 7.4 Red Blood Count 4.82 Hemoglobin 15.0 Hematocrit 42.9 Mean Corpuscular 89.0 Volume Mean Corpuscular 31.1 Hemoglobin Mean Corpuscular 35.0 Hemoglobin Concent Red Cell 12.6 Distribution Width Platelet Count 230 Mean Platelet Volume 8.6 Immature 0.300 Granulocytes % Neutrophils % 68.1 Lymphocytes % 18.6 Monocytes % 10.3 Eosinophils % 2.0 Basophils % 0.7 Nucleated Red Blood 0.0 Cells % Immature 0.020 Granulocytes # Neutrophils # 5.0 Lymphocytes # 1.4 Monocytes # 0.8 Eosinophils # 0.2 Basophils # 0.1 Nucleated Red Blood 0.0 Cells # Sodium Level 132 L Potassium Level 4.6 Chloride Level 102 Carbon Dioxide Level 24 Anion Gap 6 Blood Urea Nitrogen 23 H Creatinine 1.42 H Est Glomerular 52 L Filtrat Rate mL/min Glucose Level 170 Calcium Level 8.9 Total Bilirubin 0.5 Direct Bilirubin 0.00 Indirect Bilirubin 0.5 Aspartate Amino 56 H Transf (AST/SGOT) Alanine 25 Aminotransferase (AL T/SGPT) Alkaline Phosphatase 94 Creatine Kinase 662 H 667 H Creatine Kinase 1.8 1.8 Index Creatinine Kinase MB 11.80 H 11.70 H (Mass) Troponin I 0.081 0.059 B-Type Natriuretic 2460 H Peptide Total Protein 6.7 Albumin 3.1 L Globulin 3.60 H Albumin/Globulin 0.86 Ratio Test 08/13/18 05:46 White Blood Count 7.9 Red Blood Count 4.33 L Hemoglobin 13.6 L Hematocrit 38.6 L Mean Corpuscular 89.1 Volume Mean Corpuscular 31.4 Hemoglobin Mean Corpuscular 35.2 Hemoglobin Concent Red Cell 12.4 Distribution Width Platelet Count 240 Mean Platelet Volume 8.8 Immature 0.300 Granulocytes % Neutrophils % 67.7 Lymphocytes % 17.6 Monocytes % 10.2 Eosinophils % 3.4 Basophils % 0.8 Nucleated Red Blood 0.0 Cells % Immature 0.020 Granulocytes # Neutrophils # 5.4 Lymphocytes # 1.4 Monocytes # 0.8 Eosinophils # 0.3 Basophils # 0.1 Nucleated Red Blood 0.0 Cells # Sodium Level 134 L Potassium Level 4.5 Chloride Level 104 Carbon Dioxide Level 26 Anion Gap 4 L Blood Urea Nitrogen 24 H Creatinine 1.52 H Est Glomerular 48 L Filtrat Rate mL/min Glucose Level 136 Hemoglobin A1c 5.2 Calcium Level 8.9 Phosphorus Level 4.5 Magnesium Level 1.9 Triglycerides Level 132 Cholesterol Level 246 H LDL Cholesterol, 156 Calculated HDL Cholesterol 64 Cholesterol/HDL 3.8 Ratio Thyroid Stimulating 4.310 Hormone (TSH) Medications Medications Current Medications IV Flush (NS 3 ml) 3 ml PER PROTOCOL IV ; Start 08/12/18 at 13:00 Ondansetron HCl (Zofran Inj) 4 mg Q6H PRN IV NAUSEA/VOMITING; Start 08/12/18 at 13:00 Acetaminophen (Tylenol Tab) 650 mg Q6H PRN PO .PAIN 1-3 OR TEMP; Start 08/12/18 at 13:00 Acetaminophen/ Hydrocodone Bitart ([place] (5/325)) 1 tab Q6H PRN PO .MOD PAIN 4- 6; Start 08/12/18 at 13:00 Morphine Sulfate (morphine) 2 mg Q4H PRN IV .SEVERE PAIN 7-10; Start 08/12/18 at 13:00 Docusate Sodium (Colace) 100 mg Q12H PRN PO .CONSTIPATION; Start 08/12/18 at 13:00 Magnesium Hydroxide (Milk Of Mag) 30 ml DAILY PRN PO .CONSTIPATION; Start 08/12/18 at 13:00 Heparin Sodium (Porcine) (Heparin (5000 Units/1ml)) 5,000 unit Q12 SC Last administered on 08/13/18at 09:20; Admin Dose 5,000 UNIT; Start 08/12/18 at 21:00 Lorazepam (Ativan) 0.5 mg Q6H PRN IV ANXIETY Last administered on 08/13/18at 04:21; Admin Dose 0.5 MG; Start 08/12/18 at 13:00 Albuterol/ Ipratropium (Duoneb) 3 ml Q4H RESP THERAPY PRN HHN SHORTNESS OF BREATH; Start 08/12/18 at 13:00 Hydralazine HCl (Apresoline) 10 mg Q4H PRN IV ELEVATED BLOOD PRESSURE Last administered on 08/13/18 04:20; Admin Dose 10 MG; Start 08/12/18 at 13:00 Nitroglycerin (Nitroglycerin (Sl Tab) 0.4 Mg) 1 tab Q5M PRN SL ANGINA; Start 08/12/18 at 13:00 Aspirin (Ecotrin) 325 mg DAILY PO Last administered on 08/13/18 09:03; Admin Dose 325 MG; Start 08/13/18 at 09:00 Atorvastatin Calcium (Lipitor) 10 mg QHS PO Last administered on 08/12/18at 20:52; Admin Dose 10 MG; Start 08/12/18 at 21:00 Lisinopril (Zestril) 20 mg DAILY PO Last administered on 08/13/18 09:04; Admin Dose 20 MG; Start 08/13/18 at 09:00 Hydralazine HCl (Apresoline) 25 mg Q8 PO Last administered on 08/13/18 06:26; Admin Dose 25 MG; Start 08/12/18 at 14:00 Metoprolol Tartrate (Lopressor) 25 mg BID PO Last administered on 08/13/18 09:03; Admin Dose 25 MG; Start 08/12/18 at 21:00 Furosemide (Lasix) 40 mg DAILY IV Last administered on 08/13/18 09:04; Admin Dose 40 MG; Start 08/13/18 at 09:00 Labetalol HCl (Labetalol) 10 mg Q8 PRN IV ELEVATED BLOOD PRESSURE; Start 08/13/18 at 10:30 SHAWN MEIER August 13, 2018 12:27
--- NOTE | 2018-08-13 18:04 | CARRPT ---
DATE OF PROCEDURE: 08/13/2018 REASON FOR STRESS TESTING: Positive troponin, assess significance. REQUESTING PHYSICIAN: Dr. Calhoun from the hospitalist service. BASELINE VITAL SIGNS: Pulse 86, blood pressure 125/97. Electrocardiogram was normal sinus rhythm, ra te of 88, normal axis, normal intervals with inferior T-wave inversion. PROCEDURE: The patient underwent standard Lexiscan infusion protocol over 10 seconds followed by rad iotracer. The patient's test was stopped at completion of protocol. Maximal achieved blood pressure during the test 152/75. Maximum heart rate during the test 96. ECG FINDINGS: The patient did not develop any new Lexiscan-induced ST or T-wave changes from baselin e. No abnormality significant for any ischemic changes. SYMPTOMS: The patient had no complaints of chest pain or shortness of breath during stress testing. IMPRESSION: 1. No Lexiscan-induced ST or T-wave changes from baseline abnormalities or diagnostic cardiac ischem ia. 2. No complaints of chest pain or shortness of breath during stress test. 3. No documented premature ventricular contractions during stress test. 4. Report of nuclear images to follow in separate dictation. Dictated By: SHAWN DEJESUS/ZEUS Conf#: [id number] DID#: [id number] CC: ANDREAS CALHOUN;*EndCC*
[2018-08-13] MEDS: HYDROCODONE/APAP (5/325) TAB PO PRN (19:21)
[2018-08-13] MEDS: ATORVASTATIN 10 MG TAB PO SCH (20:34)
[2018-08-13] MEDS: LISINOPRIL 20 MG TAB PO SCH (20:36)
[2018-08-14] VITALS (10 sets, daily range): BP systolic 148–178; BP diastolic 73–95; PULSE 78–100; RESP 18–20
[2018-08-14] MEDS: morphine 2 MG INJ IV PRN ×2 (00:53→11:08)
[2018-08-14] MEDS ORDERED: AMLODIPINE 5 MG TAB PO ONE (06:00)
[2018-08-14] MEDS: FUROSEMIDE 40 MG INJ IV SCH (08:10)
[2018-08-14] MEDS: LISINOPRIL 20 MG TAB PO SCH ×2 (08:11→20:28)
[2018-08-14] MEDS: ASPIRIN (EC) 325 MG TAB PO SCH (08:11)
[2018-08-14] MEDS: METOPROLOL 25 MG TAB PO SCH ×2 (08:11→20:28)
[2018-08-14] MEDS: hydrALAzine 20 MG INJ IV PRN (08:12)
[2018-08-14] MEDS: HYDROCODONE/APAP (5/325) TAB PO PRN (08:12)
[2018-08-14] MEDS: HEPARIN 5,000 UNIT/1 ML VIAL SC SCH ×2 (08:12→20:34)
--- NOTE | 2018-08-14 09:35 | CONS ---
Consult Date/Type/Reason Admit Date/Time August 12, 2018 at 12:47 Initial Consult Date Requesting Provider: ANDREAS CALHOUN Date/Time of Note DATE: 08/14/18 TIME: 09:33 Subjective Pt better now - CP free - no CP- add BP meds - stress test negative for ischemia. ROS: No fever, no chills, no nausea, no vomiting, no diarrhea/constipation - mild SOB + leg pain Objective Vitals Vital Signs Date Temp Pulse Resp B/P (MAP) Pulse Ox O2 O2 Flow FiO2 Time Delivery Rate 08/14/18 98.0 90 19 162/85 98 07:14 (110) 08/13/18 Room Air 15:40 Intake and Output 08/13/18 08/13/18 08/14/18 1515:00 23:00 07:00 IntakeIntake Total 50 ml 800 ml 700 ml OutputOutput Total 900 ml BalanceBalance 50 ml -100 ml 700 ml Exam General: WN/WD/NAD, AOx 3 HEENT: Unicetric/atraumatic/EOMI (follows commands) NECK: JVD elevated, no thyromegaly Lymph: no lymphadenopathy HEART: regular with no S3, II/ systolic murmur at apex LUNGS: Coarse sounds ABD: soft, NT, ND, +BS : Intact Neuro: non focal SKIN: chronic changes EXT: trace edema Results/Medications Result Diagram: 08/14/18 0534 08/14/18 0534 Results 24 hrs Laboratory Tests Test 08/14/18 05:34 White Blood Count 6.6 Red Blood Count 4.10 L Hemoglobin 12.7 L Hematocrit 37.0 L Mean Corpuscular Volume 90.2 Mean Corpuscular Hemoglobin 31.0 Mean Corpuscular Hemoglobin Concent 34.3 Red Cell Distribution Width 12.5 Platelet Count 216 Mean Platelet Volume 9.0 Immature Granulocytes % 0.300 Neutrophils % 49.3 Lymphocytes % 32.6 Monocytes % 11.9 H Eosinophils % 5.0 Basophils % 0.9 Nucleated Red Blood Cells % 0.0 Immature Granulocytes # 0.020 Neutrophils # 3.3 Lymphocytes # 2.2 Monocytes # 0.8 Eosinophils # 0.3 Basophils # 0.1 Nucleated Red Blood Cells # 0.0 Sodium Level 133 L Potassium Level 3.8 Chloride Level 103 Carbon Dioxide Level 27 Anion Gap 3 L Blood Urea Nitrogen 27 H Creatinine 1.59 H Est Glomerular Filtrat Rate mL/min 46 L Glucose Level 104 Calcium Level 8.5 Home Meds Reported Medications Atenolol* (Atenolol*) 25 Mg Tablet, 25 MG PO BID, #60 TAB 08/12/18 Lisinopril* (Lisinopril*) 20 Mg Tablet, 20 MG PO DAILY, #30 TAB 08/12/18 Metformin Hcl* (Metformin Hcl*) 1,000 Mg Tablet, 1000 MG PO WITH BREAKFAST DINNE, #60 TAB 08/12/18 Furosemide* (Furosemide*) 20 Mg Tablet, 20 MG PO DAILY, #60 TAB 08/12/18 Atorvastatin Calcium (Atorvastatin Calcium) 10 Mg Tablet, 10 MG PO QHS, #30 TAB 08/12/18 Diltiazem Hcl* (Cardizem*) 30 Mg Tablet, 30 MG PO BID, #60 TAB 08/12/18 Tramadol Hcl* (Tramadol* ER) 100 Mg Tab.er.24h, 100 MG PO DAILY, #30 TAB 08/12/18 Medications Current Medications IV Flush (NS 3 ml) 3 ml PER PROTOCOL IV ; Start 08/12/18 at 13:00 Ondansetron HCl (Zofran Inj) 4 mg Q6H PRN IV NAUSEA/VOMITING; Start 08/12/18 at 13:00 Acetaminophen (Tylenol Tab) 650 mg Q6H PRN PO .PAIN 1-3 OR TEMP; Start 08/12/18 at 13:00 Acetaminophen/ Hydrocodone Bitart ([place] (5/325)) 1 tab Q6H PRN PO .MOD PAIN 4- 6 Last administered on 08/14/18at 08:12; Admin Dose 1 TAB; Start 08/12/18 at 13:00 Morphine Sulfate (morphine) 2 mg Q4H PRN IV .SEVERE PAIN 7-10 Last administered on 08/14/18at 00:53; Admin Dose 2 MG; Start 08/12/18 at 13:00 Docusate Sodium (Colace) 100 mg Q12H PRN PO .CONSTIPATION; Start 08/12/18 at 13:00 Magnesium Hydroxide (Milk Of Mag) 30 ml DAILY PRN PO .CONSTIPATION; Start 08/12/18 at 13:00 Heparin Sodium (Porcine) (Heparin (5000 Units/1ml)) 5,000 unit Q12 SC Last administered on 08/14/18 08:12; Admin Dose 5,000 UNIT; Start 08/12/18 at 21:00 Lorazepam (Ativan) 0.5 mg Q6H PRN IV ANXIETY Last administered on 08/13/18 04: 21; Admin Dose 0.5 MG; Start 08/12/18 at 13:00 Albuterol/ Ipratropium (Duoneb) 3 ml Q4H RESP THERAPY PRN HHN SHORTNESS OF BREATH; Start 08/12/18 at 13:00 Hydralazine HCl (Apresoline) 10 mg Q4H PRN IV ELEVATED BLOOD PRESSURE Last administered on 08/14/18 08:12; Admin Dose 10 MG; Start 08/12/18 at 13:00 Nitroglycerin (Nitroglycerin (Sl Tab) 0.4 Mg) 1 tab Q5M PRN SL ANGINA; Start 08/12/18 at 13:00 Aspirin (Ecotrin) 325 mg DAILY PO Last administered on 08/14/18 08:11; Admin Dose 325 MG; Start 08/13/18 at 09:00 Atorvastatin Calcium (Lipitor) 10 mg QHS PO Last administered on 08/13/18 20:34; Admin Dose 10 MG; Start 08/12/18 at 21:00 Hydralazine HCl (Apresoline) 25 mg Q8 PO Last administered on 08/14/18 05:54; Admin Dose 25 MG; Start 08/12/18 at 14:00 Metoprolol Tartrate (Lopressor) 25 mg BID PO Last administered on 08/14/18 08:11; Admin Dose 25 MG; Start 08/12/18 at 21:00 Furosemide (Lasix) 40 mg DAILY IV Last administered on 08/14/18 08:10; Admin Dose 40 MG; Start 08/13/18 at 09:00 Labetalol HCl (Labetalol) 10 mg Q8 PRN IV ELEVATED BLOOD PRESSURE Last administered on 08/14/18 00:52; Admin Dose 10 MG; Start 08/13/18 at 10:30 Lisinopril (Zestril) 20 mg BID PO Last administered on 08/14/18 08:11; Admin Dose 20 MG; Start 08/13/18 at 21:00 Assessment/Plan Hospital Course (Demo Recall) 1. Positive troponin at an outside hospital, assess significance in the setting of mild renal insufficiency and a highly sensitive assay.- negative here at [facility] x 3 - stres test shiowed no ischemia, EF 50%. Med rx advised. 2. Lower extremity edema and shortness of breath, assess congestive heart failure. Better now. 3. Exertional chest pain, rule out acute coronary syndrome- negative test. 4. Mild renal insufficiency by outside hospital labs. Avoid nephrotoxic meds. 5. Increased BNP, assess congestive heart failure. 6. Diabetes mellitus. 7. Hypertensive urgency/emergency - add Bp rx now. 8. Dyslipidemia. MAMADOU RUBALCAVA MD August 14, 2018 09:35
--- NOTE | 2018-08-14 11:07 | RADRPT ---
Echocardiogram Report Patient Name: Eusebio CAREY ID: [id number] : 1965 (53y )Study Date: 08/13/2018 3:03:41 PM Gender: MAccession #: [id number] Tech: LE Location: [facility] Ref.Physician: SHAWN MEIER Height(Cm): BSA: Weight(Kg): Quality: GoodOrder Physician: SHAWN MEIER Account #: Procedures: Echocardiographic Report: Transthoracic echocardiogram with complete 2D, M-Mode, and doppler examination. Indications: Chest Pain. Measurements: 2D/M Mode Doppler Measurement Value Normal Range Measurement Value Normal Range LVIDd 2D 4.5 [ 4.2 - 5.8 ] cm AV Mean Davion 1.2 [ 70.0 - 90.0 ] cm/sec LVIDs 2D 3.0 [ 2.5 - 4.0 ] cm AV Mean PG 6.0 [ 2.0 - 4.0 ] mmHg LVPWd 2D 1.3 [ 0.6 - 1.0 ] cm AV Peak Davion 1.6 [ 100.0 - 170.0 ] cm/sec IVSd 2D 1.3 [ 0.6 - 1.0 ] cm AV Peak PG 10.0 [ 2.0 - 9.0 ] mmHg EDV 2D 92.4 [ 62.0 - 150.0 ] ml AV VTI 27.9 cm ESV 2D 36.2 [ 21.0 - 61.0 ] ml LVOT Peak Davion 1.1 [ 70.0 - 110.0 ] cm/sec EF 2D 60.8 [ 52.0 - 72.0 ] percent LVOT Peak PG 5.0 [ 2.0 - 6.0 ] mmHg LVOT Diam 1.9 [ 2.3 - 2.9 ] cm MV E Peak Davion 0.7 [ 60.0 - 130.0 ] cm/sec MV A Peak Advion 1.1 [ 100.0 - 120.0 ] cm/sec MV E/A 0.6 [ 0.8 - 1.5 ] ratio MV Decel Time 271 [ 104 - 258 ] msec Lat E` Davion 0.1 [ 10.0 - 15.0 ] cm/sec Lateral E/E` 13.2 [ 1.0 - 2.0 ] ratio Med E` Davion 0.1 cm/sec MV E/A 0.6 [ 0.8 - 1.5 ] ratio PV Peak Davion 1.0 [ 40.0 - 80.0 ] cm/sec PV Peak PG 4.0 mmHg Findings: Left Ventricle: Normal left ventricular systolic function. Normal left ventricular cavity size. Normal left ventricular wall thickness. Mild concentric left ventricular hypertrophy. Tissue Doppler/Mitral Doppler indices are consistent with impaired relaxation (Stage I diastolic dysfunction). Right Ventricle: Normal right ventricular size. Normal right ventricular systolic function. Left Atrium: There is mild enlargement of left atrium. Right Atrium: The right atrium is normal in size. Mitral Valve: Normal appearance of the mitral valve. Trace mitral regurgitation. Aortic Valve: Normal appearance of the aortic valve. No significant aortic stenosis or insufficiency. Tricuspid Valve: Normal appearance of the tricuspid valve. Unable to obtain RVSP due to minimal presence of tricuspid regurgitation. There is trace tricuspid regurgitation. Pulmonic Valve: Normal pulmonic valve appearance. Pericardium: Normal pericardium with no significant pericardial effusion. Aorta: Normal aortic root. IVC: Normal size and normal respiratory collapse consistent with normal right atrial pressure. Conclusions: Normal left ventricular systolic function. Normal left ventricular cavity size. Normal left ventricular wall thickness. Mild concentric left ventricular hypertrophy. Tissue Doppler/Mitral Doppler indices are consistent with impaired relaxation (Stage I diastolic dysfunction). Normal appearance of the mitral valve. Trace mitral regurgitation. Normal appearance of the aortic valve. No significant aortic stenosis or insufficiency. Normal appearance of the tricuspid valve. Unable to obtain RVSP due to minimal presence of tricuspid regurgitation. There is trace tricuspid regurgitation. Electronically Signed By: Isrrael Carter 2018-08-14 11:06:48 PDT
--- NOTE | 2018-08-14 16:50 | PN ---
Date/Time of Note Date/Time of Note DATE: 08/14/18 TIME: 16:48 Assessment/Plan VTE Prophylaxis Risk score (from Nsg)>0 risk: 2 SCD applied (from Nsg): No SCD contraindicated: low risk/ambulating Pharmacological prophylaxis: heparin Lines/Catheters IV Catheter Type (from Nrsg): Saline Lock Urinary Cath still in place: No Assessment/Plan Assessment/Plan 53-year-old male history of diabetes, hypertension, possible CHF who presented to outside hospital earlier today with decreased exercise tolerance, signs of CHF exacerbation, hypertensive urgency, and elevated troponins, possible non-ST elevation [place]. #Leg pain - He has new cramping bilateral leg pain and positive Cory's sign - Will check LE duplex for DVT. #Questionable non-ST elevation [place]: Again at the outside hospital before transfer his first 2 troponins were elevated, but no EKG changes. Patient denies any prior history of any stroke or heart attack -For now continue current cardiac medications-cardiac stress test negative. -Also continue high-dose aspirin, morphine, oxygen, nitroglycerin, follow-up 2D echocardiogram and continue to trend his troponins -Continue statin, f/u cardiology recommendations #Shortness of breath: Likely secondary to combination of non-STEMI possibly an CHF exacerbation, BNP 2700 on admission -Keep head of the bed elevated greater than 30 degrees, IV Lasix -Monitor daily weights and ins and outs, follow-up echocardiogram results and obtain cardiology consult as mentioned above - continue p.o. Coreg, p.o. hydralazine, and lisinopril p.o. # DM -A1c was 5.2, continue sliding scale insulin # HTN: Again signs of hypertensive urgency, somewhat improved since admission. - See above, monitor, continue current medications Anticipate discharge in 24-48 hours. Result Diagram: 08/14/18 0534 08/14/18 0534 Subjective 24 Hr Interval Summary Free Text/Dictation Patient feeling well, no acute overnight events. Chest pain has resolved. He does complain of cramping L>R foot pain. Exam/Review of Systems Exam Vitals Vital Signs Date Temp Pulse Resp B/P (MAP) Pulse Ox O2 O2 Flow FiO2 Time Delivery Rate 08/14/18 87 16:01 08/14/18 97.8 19 150/73 98 15:22 (98) 5/27/19 Room Air 15:40 Intake and Output 08/13/18 08/13/18 08/14/18 1515:00 23:00 07:00 IntakeIntake Total 50 ml 800 ml 700 ml OutputOutput Total 900 ml BalanceBalance 50 ml -100 ml 700 ml Exam General: Lying in bed, no acute distress Head: Normocephalic, atraumatic. Eyes: EOM intact ENT: Moist mucous membranes Neck: Supple Respiratory: No respiratory distress Cardiovascular: S1, S2 heard Abdominal: Soft, nondistended, normal bowel sounds, no rebound or guarding MSK: nonpitting edema bilateral extremity to the mid calves Results Results 24hrs Laboratory Tests Test 08/14/18 05:34 White Blood Count 6.6 Red Blood Count 4.10 L Hemoglobin 12.7 L Hematocrit 37.0 L Mean Corpuscular Volume 90.2 Mean Corpuscular Hemoglobin 31.0 Mean Corpuscular Hemoglobin Concent 34.3 Red Cell Distribution Width 12.5 Platelet Count 216 Mean Platelet Volume 9.0 Immature Granulocytes % 0.300 Neutrophils % 49.3 Lymphocytes % 32.6 Monocytes % 11.9 H Eosinophils % 5.0 Basophils % 0.9 Nucleated Red Blood Cells % 0.0 Immature Granulocytes # 0.020 Neutrophils # 3.3 Lymphocytes # 2.2 Monocytes # 0.8 Eosinophils # 0.3 Basophils # 0.1 Nucleated Red Blood Cells # 0.0 Sodium Level 133 L Potassium Level 3.8 Chloride Level 103 Carbon Dioxide Level 27 Anion Gap 3 L Blood Urea Nitrogen 27 H Creatinine 1.59 H Est Glomerular Filtrat Rate mL/min 46 L Glucose Level 104 Calcium Level 8.5 Medications Medication Current Medications IV Flush (NS 3 ml) 3 ml PER PROTOCOL IV ; Start 08/12/18 at 13:00 Ondansetron HCl (Zofran Inj) 4 mg Q6H PRN IV NAUSEA/VOMITING; Start 08/12/18 at 13:00 Acetaminophen (Tylenol Tab) 650 mg Q6H PRN PO .PAIN 1-3 OR TEMP; Start 08/12/18 at 13:00 Acetaminophen/ Hydrocodone Bitart ([place] (5/325)) 1 tab Q6H PRN PO .MOD PAIN 4- 6 Last administered on 08/14/18at 08:12; Admin Dose 1 TAB; Start 08/12/18 at 13:00 Morphine Sulfate (morphine) 2 mg Q4H PRN IV .SEVERE PAIN 7-10 Last administered on 08/14/18 11:08; Admin Dose 2 MG; Start 08/12/18 at 13:00 Docusate Sodium (Colace) 100 mg Q12H PRN PO .CONSTIPATION; Start 08/12/18 at 13:00 Magnesium Hydroxide (Milk Of Mag) 30 ml DAILY PRN PO .CONSTIPATION; Start 08/12/18 at 13:00 Heparin Sodium (Porcine) (Heparin (5000 Units/1ml)) 5,000 unit Q12 SC Last administered on 08/14/18 08:12; Admin Dose 5,000 UNIT; Start 08/12/18 at 21:00 Lorazepam (Ativan) 0.5 mg Q6H PRN IV ANXIETY Last administered on 08/13/18 04:21; Admin Dose 0.5 MG; Start 08/12/18 at 13:00 Albuterol/ Ipratropium (Duoneb) 3 ml Q4H RESP THERAPY PRN HHN SHORTNESS OF BREATH; Start 08/12/18 at 13:00 Hydralazine HCl (Apresoline) 10 mg Q4H PRN IV ELEVATED BLOOD PRESSURE Last administered on 08/14/18 08:12; Admin Dose 10 MG; Start 08/12/18 at 13:00 Nitroglycerin (Nitroglycerin (Sl Tab) 0.4 Mg) 1 tab Q5M PRN SL ANGINA; Start 08/12/18 at 13:00 Aspirin (Ecotrin) 325 mg DAILY PO Last administered on 08/14/18 08:11; Admin Dose 325 MG; Start 08/13/18 at 09:00 Atorvastatin Calcium (Lipitor) 10 mg QHS PO Last administered on 08/13/18 20: 34; Admin Dose 10 MG; Start 08/12/18 at 21:00 Hydralazine HCl (Apresoline) 25 mg Q8 PO Last administered on 08/14/18 13:45; Admin Dose 25 MG; Start 08/12/18 at 14:00 Metoprolol Tartrate (Lopressor) 25 mg BID PO Last administered on 08/14/18 08:11; Admin Dose 25 MG; Start 08/12/18 at 21:00 Furosemide (Lasix) 40 mg DAILY IV Last administered on 08/14/18 08:10; Admin Dose 40 MG; Start 08/13/18 at 09:00 Labetalol HCl (Labetalol) 10 mg Q8 PRN IV ELEVATED BLOOD PRESSURE Last administered on 08/14/18at 00:52; Admin Dose 10 MG; Start 08/13/18 at 10:30 Lisinopril (Zestril) 20 mg BID PO Last administered on 08/14/18at 08:11; Admin Dose 20 MG; Start 08/13/18 at 21:00 Hydralazine HCl (Apresoline) 100 mg Q8 PO Last administered on 08/14/18at 13:45; Admin Dose 100 MG; Start 08/14/18 at 14:00 Diltiazem HCl (Cardizem) 30 mg BID PO ; Start 08/14/18 at 21:00 SHAWN YOU MD August 14, 2018 16:50
[2018-08-14] MEDS: DILTIAZEM 30 MG TAB PO SCH (20:27)
[2018-08-14] MEDS: ATORVASTATIN 10 MG TAB PO SCH (21:00)
[2018-08-14] MEDS ORDERED: traZODone 50 MG TAB PO ONE (23:00)
[2018-08-15] VITALS (10 sets, daily range): BP systolic 136–158; BP diastolic 80–86; PULSE 68–90; RESP 18
[2018-08-15] MEDS: FUROSEMIDE 40 MG INJ IV SCH (08:30)
[2018-08-15] MEDS: ASPIRIN (EC) 325 MG TAB PO SCH (08:30)
[2018-08-15] MEDS: METOPROLOL 25 MG TAB PO SCH ×2 (08:30→20:40)
[2018-08-15] MEDS: LISINOPRIL 20 MG TAB PO SCH ×2 (08:31→20:40)
[2018-08-15] MEDS: DILTIAZEM 30 MG TAB PO SCH ×2 (08:31→20:40)
[2018-08-15] MEDS: HEPARIN 5,000 UNIT/1 ML VIAL SC SCH ×2 (08:37→20:55)
--- NOTE | 2018-08-15 09:09 | RADRPT ---
Vent Rate: 83 bpm RR Interval: 724 msec MA Interval: 181 msec QRS Duration: 91 msec QT Interval: 405 msec QTC Interval: 476 msec P-R-T [place]: 72 - 86 - 30 degrees Sinus rhythm...normal P axis, V-rate 50- 99 ST elev, probable normal early repol pattern...ST elevation, age<55 Electronically Signed By: Mendez Koch
[2018-08-15] MEDS ORDERED: SOD CHLORIDE 0.9% 500 ML IV ONE (11:30)
--- NOTE | 2018-08-15 14:33 | PN ---
Date/Time of Note Date/Time of Note DATE: 08/15/18 TIME: 14:31 Assessment/Plan VTE Prophylaxis Risk score (from Ns)>0 risk: 2 SCD applied (from Ns): No SCD contraindicated: bilateral LE trauma Pharmacological prophylaxis: heparin Lines/Catheters IV [facility]from [facility] Saline Lock Urinary Cath still in place: No Assessment/Plan Assessment/Plan 53-year-old male history of diabetes, hypertension, possible CHF who presented to outside hospital earlier today with decreased exercise tolerance, signs of CHF exacerbation, hypertensive urgency, and elevated troponins, possible non-ST elevation [place]. #Hyponatremia #[place] - Likely due to overdiuresis with Lasix - Gave 500 cc bolus this afternoon but sodium still dropping. - Will watch another night in house off lasix. #Leg pain - Now resolved. - US negative for DVT. #Questionable non-ST elevation [place]: Again at the outside hospital before transfer his first 2 troponins were elevated, but no EKG changes. Patient denies any prior history of any stroke or heart attack -For now continue current cardiac medications-cardiac stress test negative. -Also continue high-dose aspirin, morphine, oxygen, nitroglycerin, follow-up 2D echocardiogram and continue to trend his troponins -Continue statin, f/u cardiology recommendations #Shortness of breath: Likely secondary to combination of non-STEMI possibly an CHF exacerbation, BNP 2700 on admission -Resolved. - continue p.o. Coreg, p.o. hydralazine, and lisinopril p.o. # DM -A1c was 5.2, continue sliding scale insulin # HTN: Again signs of hypertensive urgency, somewhat improved since admission. - See above, monitor, continue current medications Anticipate discharge when Cr and Na improving. Result Diagram: 08/15/18 0719 08/15/18 1237 Subjective 24 Hr Interval Summary Free Text/Dictation No acute overnight events. Foot pain resolved. Patient is up walking around hallways and room. Feels well. Wants to go home. Exam/Review of Systems Exam Vitals Vital Signs Date Temp Pulse Resp B/P (MAP) Pulse Ox O2 O2 Flow FiO2 Time Delivery Rate 08/15/18 68 12:00 08/15/18 97.9 18 136/82 99 11:02 (100) 08/13/18 Room Air 15:40 Intake and Output 508/14/18 08/15/18 1515:00 23:00 07:00 IntakeIntake Total 1000 ml 750 ml BalanceBalance 1000 ml 750 ml Exam General: Sitting up in chair. No distress. Head: Normocephalic, atraumatic. Eyes: EOM intact ENT: Moist mucous membranes Neck: Supple Respiratory: No respiratory distress Cardiovascular: S1, S2 heard Abdominal: Soft, nondistended, normal bowel sounds, no rebound or guarding MSK: nonpitting edema bilateral extremity to the mid calves Results Results 24hrs Laboratory Tests Test 08/15/18 07:19 08/15/18 12:37 White Blood Count 6.1 Red Blood Count 4.23 L Hemoglobin 13.1 L Hematocrit 37.8 L Mean Corpuscular Volume 89.4 Mean Corpuscular Hemoglobin 31.0 Mean Corpuscular Hemoglobin Concent 34.7 Red Cell Distribution Width 12.4 Platelet Count 231 Mean Platelet Volume 8.9 Immature Granulocytes % 0.200 Neutrophils % 52.4 Lymphocytes % 29.5 Monocytes % 11.2 H Eosinophils % 5.9 Basophils % 0.8 Nucleated Red Blood Cells % 0.0 Immature Granulocytes # 0.010 Neutrophils # 3.2 Lymphocytes # 1.8 Monocytes # 0.7 Eosinophils # 0.4 Basophils # 0.1 Nucleated Red Blood Cells # 0.0 Sodium Level 131 L 129 L Potassium Level 4.3 3.9 Chloride Level 99 99 Carbon Dioxide Level 27 26 Anion Gap 5 4 L Blood Urea Nitrogen 31 H 33 H Creatinine 1.71 H 1.60 H Est Glomerular Filtrat Rate mL/min 42 L 45 L Glucose Level 121 99 Calcium Level 8.5 8.5 Medications Medication Current Medications IV Flush (NS 3 ml) 3 ml PER PROTOCOL IV ; Start 08/12/18 at 13:00 Ondansetron HCl (Zofran Inj) 4 mg Q6H PRN IV NAUSEA/VOMITING; Start 08/12/18 at 13:00 Acetaminophen (Tylenol Tab) 650 mg Q6H PRN PO .PAIN 1-3 OR TEMP; Start 08/12/18 at 13:00 Acetaminophen/ Hydrocodone Bitart ([place] (5/325)) 1 tab Q6H PRN PO .MOD PAIN 4- 6 Last administered on 08/14/18at 08:12; Admin Dose 1 TAB; Start 08/12/18 at 13:00 Morphine Sulfate (morphine) 2 mg Q4H PRN IV .SEVERE PAIN 7-10 Last administered on 08/14/18 11:08; Admin Dose 2 MG; Start 08/12/18 at 13:00 Docusate Sodium (Colace) 100 mg Q12H PRN PO .CONSTIPATION; Start 08/12/18 at 13:00 Magnesium Hydroxide (Milk Of Mag) 30 ml DAILY PRN PO .CONSTIPATION; Start 08/12/18 at 13:00 Heparin Sodium (Porcine) (Heparin (5000 Units/1ml)) 5,000 unit Q12 SC Last administered on 08/15/18 08:37; Admin Dose 5,000 UNIT; Start 08/12/18 at 21:00 Lorazepam (Ativan) 0.5 mg Q6H PRN IV ANXIETY Last administered on 08/13/18 04:21; Admin Dose 0.5 MG; Start 08/12/18 at 13:00 Albuterol/ Ipratropium (Duoneb) 3 ml Q4H RESP THERAPY PRN HHN SHORTNESS OF BREATH; Start 08/12/18 at 13:00 Hydralazine HCl (Apresoline) 10 mg Q4H PRN IV ELEVATED BLOOD PRESSURE Last administered on 08/14/18 08:12; Admin Dose 10 MG; Start 08/12/18 at 13:00 Nitroglycerin (Nitroglycerin (Sl Tab) 0.4 Mg) 1 tab Q5M PRN SL ANGINA; Start 08/12/18 at 13:00 Aspirin (Ecotrin) 325 mg DAILY PO Last administered on 08/15/18 08:30; Admin Dose 325 MG; Start 08/13/18 at 09:00 Atorvastatin Calcium (Lipitor) 10 mg QHS PO Last administered on 08/14/18 21:00; Admin Dose 10 MG; Start 08/12/18 at 21:00 Metoprolol Tartrate (Lopressor) 25 mg BID PO Last administered on 08/15/18 08:30; Admin Dose 25 MG; Start 08/12/18 at 21:00 Labetalol HCl (Labetalol) 10 mg Q8 PRN IV ELEVATED BLOOD PRESSURE Last administered on 08/14/18at 00:52; Admin Dose 10 MG; Start 08/13/18 at 10:30 Lisinopril (Zestril) 20 mg BID PO Last administered on 08/15/18 08:31; Admin Dose 20 MG; Start 08/13/18 at 21:00 Hydralazine HCl (Apresoline) 100 mg Q8 PO Last administered on 08/15/18at 14:23; Admin Dose 100 MG; Start 08/14/18 at 14:00 Diltiazem HCl (Cardizem) 30 mg BID PO Last administered on 08/15/18 08:31; Admin Dose 30 MG; Start 08/14/18 at 21:00 SHAWN YOU MD August 15, 2018 14:33
--- NOTE | 2018-08-15 19:54 | CONS ---
Assessment/Plan Assessment/Plan Hospital Course (Demo Recall) IMPRESSION: 1. Positive troponin at an outside hospital, assess significance in the setting of mild renal insufficiency and a highly sensitive assay.- negative here at [facility] x 3. Lexiscan with no ischemia EF 51% but by echo EF NL 2. Lower extremity edema and shortness of breath, assess congestive heart failure. 3. Exertional chest pain, rule out acute coronary syndrome. 4. Mild renal insufficiency by outside hospital labs. 5. Increased BNP, assess congestive heart failure.-diastolic acute on chronic 6. Diabetes mellitus. 7. Hypertensive urgency/emergency-slowly improving on oral antihypertensives. 8. Dyslipidemia. REcc: -Tele -Contineu to trend cardiac enzymes -Continue BB/hydralazine/ACEI and now started on diltiazem. follow bp closely and if remains elevated would consider change to dihydropyridine(Norvasc/procardia) -Continue asa -Continue daily lasix and follow volume status closely and cretnine Consultation Date/Type/Reason Admit Date/Time August 12, 2018 at 12:47 Initial Consult Date 08/11/18 Type of Consult Cardiology Reason for Consultation positive troponin/cardiomyopathy ef 15% Requesting Provider: ANDREAS CALHOUN Date/Time of Note DATE: 08/15/18 TIME: 19:48 Exam/Review of Systems Vital Signs Vitals Vital Signs Date Temp Pulse Resp B/P (MAP) Pulse Ox O2 O2 Flow FiO2 Time Delivery Rate 08/15/18 98.0 84 18 158/80 98 Room Air 19:38 (106) Intake and Output 08/14/18 08/14/18 08/15/18 1515:00 23:00 07:00 IntakeIntake Total 1000 ml 750 ml BalanceBalance 1000 ml 750 ml Exam Exam Review of Systems: CONSTITUTIONAL: No fevers, chills. PULMONARY: No sob CARDIOVASCULAR: No chest pain/palpitations GASTROINTESTINAL: No nausea/vomiting. GENITOURINARY: No hematuria/dysuria. MUSCULOSKELETAL: No myagias/arthalgias. PSYCHIATRIC: The patient denies depression. NEUROLOGIC: No weakness Constitutional: alert Psych: no complaints Head: normocephalic ENMT: mucosa pink and moist Neck: supple, jvd (9 cm water) Respiratory: diminished breath sounds Cardiovascular: regular rate and rhythm Gastrointestinal: soft, non-tender Musculoskeletal: muscle tone (normal) Extremities: edema (none) Neurological: other (No focal deficits) Labs Result Diagram: 08/15/18 0719 08/15/18 1237 Results 24hrs Laboratory Tests Test 08/15/18 07:19 08/15/18 12:37 White Blood Count 6.1 Red Blood Count 4.23 L Hemoglobin 13.1 L Hematocrit 37.8 L Mean Corpuscular Volume 89.4 Mean Corpuscular Hemoglobin 31.0 Mean Corpuscular Hemoglobin Concent 34.7 Red Cell Distribution Width 12.4 Platelet Count 231 Mean Platelet Volume 8.9 Immature Granulocytes % 0.200 Neutrophils % 52.4 Lymphocytes % 29.5 Monocytes % 11.2 H Eosinophils % 5.9 Basophils % 0.8 Nucleated Red Blood Cells % 0.0 Immature Granulocytes # 0.010 Neutrophils # 3.2 Lymphocytes # 1.8 Monocytes # 0.7 Eosinophils # 0.4 Basophils # 0.1 Nucleated Red Blood Cells # 0.0 Sodium Level 131 L 129 L Potassium Level 4.3 3.9 Chloride Level 99 99 Carbon Dioxide Level 27 26 Anion Gap 5 4 L Blood Urea Nitrogen 31 H 33 H Creatinine 1.71 H 1.60 H Est Glomerular Filtrat Rate mL/min 42 L 45 L Glucose Level 121 99 Calcium Level 8.5 8.5 Medications Medications Current Medications IV Flush (NS 3 ml) 3 ml PER PROTOCOL IV ; Start 08/12/18 at 13:00 Ondansetron HCl (Zofran Inj) 4 mg Q6H PRN IV NAUSEA/VOMITING; Start 08/12/18 at 13:00 Acetaminophen (Tylenol Tab) 650 mg Q6H PRN PO .PAIN 1-3 OR TEMP; Start 08/12/18 at 13:00 Acetaminophen/ Hydrocodone Bitart ([place] (5/325)) 1 tab Q6H PRN PO .MOD PAIN 4- 6 Last administered on 08/14/18at 08:12; Admin Dose 1 TAB; Start 08/12/18 at 13:00 Morphine Sulfate (morphine) 2 mg Q4H PRN IV .SEVERE PAIN 7-10 Last administered on 08/14/18at 11:08; Admin Dose 2 MG; Start 08/12/18 at 13:00 Docusate Sodium (Colace) 100 mg Q12H PRN PO .CONSTIPATION; Start 08/12/18 at 13:00 Magnesium Hydroxide (Milk Of Mag) 30 ml DAILY PRN PO .CONSTIPATION; Start 08/12/18 at 13:00 Heparin Sodium (Porcine) (Heparin (5000 Units/1ml)) 5,000 unit Q12 SC Last administered on 08/15/18 08:37; Admin Dose 5,000 UNIT; Start 08/12/18 at 21:00 Lorazepam (Ativan) 0.5 mg Q6H PRN IV ANXIETY Last administered on 08/13/18 04:21; Admin Dose 0.5 MG; Start 08/12/18 at 13:00 Albuterol/ Ipratropium (Duoneb) 3 ml Q4H RESP THERAPY PRN HHN SHORTNESS OF BREATH; Start 08/12/18 at 13:00 Hydralazine HCl (Apresoline) 10 mg Q4H PRN IV ELEVATED BLOOD PRESSURE Last administered on 08/14/18 08:12; Admin Dose 10 MG; Start 08/12/18 at 13:00 Nitroglycerin (Nitroglycerin (Sl Tab) 0.4 Mg) 1 tab Q5M PRN SL ANGINA; Start 08/12/18 at 13:00 Aspirin (Ecotrin) 325 mg DAILY PO Last administered on 08/15/18 08:30; Admin Dose 325 MG; Start 08/13/18 at 09:00 Atorvastatin Calcium (Lipitor) 10 mg QHS PO Last administered on 08/14/18 21:00; Admin Dose 10 MG; Start 08/12/18 at 21:00 Metoprolol Tartrate (Lopressor) 25 mg BID PO Last administered on 08/15/18 08:30; Admin Dose 25 MG; Start 08/12/18 at 21:00 Labetalol HCl (Labetalol) 10 mg Q8 PRN IV ELEVATED BLOOD PRESSURE Last administered on 08/14/18 00:52; Admin Dose 10 MG; Start 08/13/18 at 10:30 Lisinopril (Zestril) 20 mg BID PO Last administered on 08/15/18 08:31; Admin Dose 20 MG; Start 08/13/18 at 21:00 Hydralazine HCl (Apresoline) 100 mg Q8 PO Last administered on 08/15/18 14:23; Admin Dose 100 MG; Start 08/14/18 at 14:00 Diltiazem HCl (Cardizem) 30 mg BID PO Last administered on 08/15/18at 08:31; Admin Dose 30 MG; Start 08/14/18 at 21:00 SHAWN MEIER August 15, 2018 19:54
[2018-08-15] MEDS: ATORVASTATIN 10 MG TAB PO SCH (20:40)
[2018-08-16] VITALS: BP 141/85; PULSE 77; PULSE 80; RESP 19
[2018-08-16 04:00] VITALS: BP 155/79; PULSE 79; PULSE 80; RESP 18
[2018-08-16 07:09] VITALS: BP 143/80; PULSE 81; RESP 18
[2018-08-16 08:00] VITALS: PULSE 80
[2018-08-16] MEDS: METOPROLOL 25 MG TAB PO SCH (08:19)
[2018-08-16] MEDS: DILTIAZEM 30 MG TAB PO SCH (08:19)
[2018-08-16] MEDS: LISINOPRIL 20 MG TAB PO SCH (08:19)
[2018-08-16] MEDS: ASPIRIN (EC) 325 MG TAB PO SCH (08:19)
[2018-08-16] MEDS: HEPARIN 5,000 UNIT/1 ML VIAL SC SCH (09:19)
[2018-08-16 11:01] VITALS: BP 126/76; PULSE 88; RESP 18
--- NOTE | 2018-08-16 11:22 | PDOCDIS ---
Discharge Instructions DIAGNOSIS Discharge Diagnosis Congestive heart failure exacerbation CONDITION [id number] Patient Condition: Cieob2q Good HOME CARE INSTRUCTIONS: [id number] Diet Instructions: [id number] Reduced Sodium ACTIVITY: [id number] Activity Restrictions: [id number] No Restrictions FOLLOW UP/APPOINTMENTS Follow-up Plan 1. Continue all medications as prescribed. 2. See your primary care doctor in 1-2 weeks. SHAWN YOU MD August 16, 2018 11:22
[2018-08-16 12:00] VITALS: PULSE 80
--- NOTE | 2018-08-16 17:41 | DS ---
Date/Time of Note Date/Time of Note DATE: 08/16/18 TIME: 17:38 Discharge Summary Admission/Discharge Info Admit Date/Time August 12, 2018 at 12:47 Discharge Date/Time August 16, 2018 at 14:00 Discharge Diagnosis Congestive heart failure exacerbation Patient Condition: Good Consults Dr. Starr cardiology Hx of Present Illness 53-year-old male past medical history of diabetes, hypertension, possible CHF, who actually was admitted yesterday after being transferred from [facility] emergency room for chest pain and shortness of breath. Patient left AGAINST MEDICAL ADVICE earlier this morning for about 30 minutes then came back to the emergency room today, for unclear reasons (he does not appear to make the wisest decisions regarding his medical care). In any event, yesterday the patient stated his symptoms have been going on for the last 2 to 3 weeks. He is also had decreased exercise tolerance during this time. He is noted some increased lower extremity swelling bilaterally. No upper or lower GI bleeding, no fevers or chills, nausea vomiting, or diarrhea constipation. Patient again today is found with hypertensive urgency systolic blood pressures in the 200 range, yesterday he was also found with elevated BNP of 2700, and apparently at the outside hospital his first 2 troponins they were positive although he had no EKG changes. Cardiology team saw him yesterday and recommended treatment of blood pressure and the CHF. Patient has been on Lasix before he left AGAINST MEDICAL ADVICE this morning. Presently patient is asking to be readmitted and has no upper or lower GI bleeding presently, nausea vomiting fever chills, diarrhea constipation. Hospital Course The patient was restarted on his antihypertensive medications. His troponin was trended but it was not elevated. His chest pain quickly resolved. He was given IV furosemide for diuresis with improvement in dyspnea. Hospital course complicated by hyponatremia and [place] which may have been due to overdiuresis. Lasix was held, a small fluid bolus was given, and both sodium and Cr were improving at time of discharge. Home Meds Reported Medications Atenolol* (Atenolol*) 25 Mg Tablet, 25 MG PO BID, #60 TAB 08/12/18 Lisinopril* (Lisinopril*) 20 Mg Tablet, 20 MG PO DAILY, #30 TAB 08/12/18 Metformin Hcl* (Metformin Hcl*) 1,000 Mg Tablet, 1000 MG PO WITH BREAKFAST DINNE, #60 TAB 5/26/19 Furosemide* (Furosemide*) 20 Mg Tablet, 20 MG PO DAILY, #60 TAB 08/12/18 Atorvastatin Calcium (Atorvastatin Calcium) 10 Mg Tablet, 10 MG PO QHS, #30 TAB 08/12/18 Diltiazem Hcl* (Cardizem*) 30 Mg Tablet, 30 MG PO BID, #60 TAB 08/12/18 Tramadol Hcl* (Tramadol* ER) 100 Mg Tab.er.24h, 100 MG PO DAILY, #30 TAB 08/12/18 Follow-up Plan 1. Continue all medications as prescribed. 2. See your primary care doctor in 1-2 weeks. Primary Care Provider Not On Staff Doctor Time spent on discharge: > 30 minutes Pending Labs Laboratory Tests Test 08/16/18 06:29 White Blood Count 5.1 10^3/ul (4.8-10.8) Red Blood Count 4.12 10^6/ul (4.70-6.10) Hemoglobin 12.9 g/dl (14.0-18.0) Hematocrit 36.0 % (42.0-52.0) Mean Corpuscular Volume 87.4 fl (82.0-101.0) Mean Corpuscular Hemoglobin 31.3 pg (29.0-33.0) Mean Corpuscular Hemoglobin Concent 35.8 g/dl (32.0-37.0) Red Cell Distribution Width 12.2 % (11.5-14.5) Platelet Count 210 10^3/UL (140-415) Mean Platelet Volume 8.9 fl (7.4-10.4) Immature Granulocytes % 0.200 % (0.001-0.429) Neutrophils % 52.9 % (39.0-77.0) Lymphocytes % 27.6 % (15.0-51.0) Monocytes % 11.5 % (0.0-11.0) Eosinophils % 7.0 % (0.0-7.0) Basophils % 0.8 % (0.0-2.0) Nucleated Red Blood Cells % 0.0 /100WBC (0.0-0.0) Immature Granulocytes # 0.010 10^3/ul (0.0-0.031) Neutrophils # 2.7 10^3/ul (1.6-7.5) Lymphocytes # 1.4 10^3/ul (0.8-2.9) Monocytes # 0.6 10^3/ul (0.3-0.9) Eosinophils # 0.4 10^3/ul (0.0-0.5) Basophils # 0.0 10^3/ul (0.0-0.1) Nucleated Red Blood Cells # 0.0 10^3/ul (0.0-0.0) Sodium Level 130 mmol/L (135-144) Potassium Level 3.9 mmol/L (3.5-5.1) Chloride Level 101 mmol/L (97-110) Carbon Dioxide Level 26 mmol/L (21-31) Anion Gap 3 (5-13) Blood Urea Nitrogen 33 mg/dl (7-20) Creatinine 1.49 mg/dl (0.61-1.24) Est Glomerular Filtrat Rate mL/min 49 mL/min (>60) Glucose Level 120 mg/dl (70-220) Calcium Level 8.2 mg/dl (8.4-10.2) SHAWN YOU MD August 16, 2018 17:41
== END 2018-08-16 14:00 | disposition home or self-care (01) | DRG 292 ==
LOC: E/R 12:29 → TEL 12:47
PROVIDERS: ADMIT Hospitalist; ATTEND Internal Medicine
DX: I11.0 Hypertensive heart disease with heart failure (principal); E87.1 Hypo-osmolality and hyponatremia; N17.9 Acute kidney failure, unspecified; I50.33 Acute on chronic diastolic (congestive) heart failure; I16.0 Hypertensive urgency; E11.9 Type 2 diabetes mellitus without complications; E78.5 Hyperlipidemia, unspecified; M79.605 Pain in left leg; M79.604 Pain in right leg; R60.0 Localized edema; Z79.4 Long term (current) use of insulin
CPT/HCPCS: 78452; 80048; 80053; 80061; 82550; 82553; 83036; 83735; 83880; 84100; 84439; 84443; 84484; 85025; 85610; 85730; 87081; 93005; 93017; 93306; 93970; A9500; A9505; J0360; J1644; J1940; J2060; J2270; J2785; J7040